=== PATIENT | male | born 1955 | race Caucasian/White ===

== ENCOUNTER 2020-08-09 11:23 | Outpatient (CLI) | payer MEDICARE, SELFPAY ==
--- NOTE | ~2020-08-09 | XR_ITS ---
EXAMINATION: XR abdomen/kub 1V INDICATION: Hematuria unspecified, right-sided pain TECHNIQUE: Supine views of the abdomen were obtained on 2 radiographs. COMPARISON: None FINDINGS: There is a 7 mm calcification projecting just to the right of the sacrum. A round right upp er quadrant calcification appears to project outside the kidney, possibly a gallstone. There is a 5 m m linear calcification projecting over the lower pole of the left kidney. The bowel gas pattern is no rmal. Calcified pulmonary nodules of the visualized lower lobes are consistent with old granulomatous disease. IMPRESSION: 1. 7 mm indeterminate right pelvic calcification, ureteral stone versus vascular calcification. Reviewed, dictated and finalized at location A. ING UP MAN IMPRESSION: 1. 7 mm indeterminate right pelvic calcification, ureteral stone versus vascula r calcification.
== END 2020-08-09 11:24 | disposition home or self-care (01) ==
LOC: ANHIMG 11:29
PROVIDERS: PCP Family Medicine; Visit Provider Family Medicine
DX: R31.9 Hematuria, unspecified (principal)
CPT/HCPCS: 74018

== ENCOUNTER → 2020-08-14 10:36 | Outpatient (CLI) | payer MEDICARE, SELFPAY ==
--- NOTE | ~2020-08-14 | CT_ITS ---
EXAMINATION: CT abdomen pelvis wo con DATE: 08/14/2020 10:52 INDICATION: Hematuria, right flank and lower quadrant pain TECHNIQUE: Computed tomography (CT) of the abdomen and pelvis was performed without intravenous contr ast. The dose-length product (DLP) was 550.81 mGy-cm. Automated exposure control and iterative recons truction technique were employed. COMPARISON: None FINDINGS: Minimal dependent atelectasis is present in the lung bases. The heart size is normal. Cysts of the liver measure up to 11 mm in the right hepatic lobe. Punctate calcifications in an otherwise normal spleen likely represent healed granulomatous disease. The pancreas and right adrenal gland are normal. There is an 11 mm low-density mass of the left adrenal gland, consistent with an adenoma. A stone is present in the nondistended gallbladder. A 7 mm stone is present in the distal right ureter near the ureterovesicular junction. There is mild right hydronephrosis. Punctate stones are present i n the lower pole of the left kidney. There is calcified atherosclerosis of the aorta and many of the other arteries. No pathologically enlarged abdominal or pelvic lymph nodes are identified. There is n o free intraperitoneal gas or evidence of bowel obstruction. There is moderate lumbar spondylosis at L5-S1. A tiny fat-containing umbilical hernia is noted. IMPRESSION: 1. 7 mm stone in the distal right ureter causing mild hydronephrosis. 2. Nonobstructing left nephrolithiasis. 3. Cholelithiasis without evidence of cholecystitis. Reviewed, dictated and finalized at location A. RMATION TECHNOLOGY ASSOCIATE
== END ==
PROVIDERS: PCP Family Medicine; Visit Provider Family Medicine
DX: R31.9 Hematuria, unspecified (principal); N20.0 Calculus of kidney; K80.20 Calculus of gallbladder without cholecystitis without obstruction
CPT/HCPCS: 74176

== ENCOUNTER 2020-08-15 14:15 | Outpatient (CLI) | payer MEDICARE, SELFPAY | END 2020-08-15 14:16 | disposition home or self-care (01) | LOC: ANHCOVIDVC 14:15 | PROVIDERS: PCP Family Medicine | DX: Z23 Encounter for immunization (principal) | CPT/HCPCS: 0001A; 91300 ==

== ENCOUNTER 2020-08-19 12:04 | Outpatient (CLI) | payer MEDICARE, SELFPAY ==
--- NOTE | ~2020-08-19 | XR_ITS ---
XR abdomen/kub 1V DATE: 08/19/2020 12:23 INDICATION: Right ureteral stone TECHNIQUE: AP projection, 2 views COMPARISON: 08/14/[address] abdomen pelvis 08/09/2020 KUB FINDINGS: Probable faint calcified right ureteral calculus appears to have progressed approximately 3 cm further distally in the right ureter compared to 08/09/2020. The psoas shadows are intact. No visceromegaly is evident. There is no evidence of bowel obstruction. Included skeletal structures are unremarkable. IMPRESSION: Faintly calcified 7 mm distal right ureteral calculus Reviewed, dictated and finalized at Location A. Reviewed, dictated and finalized at location A.
== END 2020-08-19 12:05 | disposition home or self-care (01) ==
PROVIDERS: PCP Family Medicine; Visit Provider Urology
DX: N20.1 Calculus of ureter (principal)
CPT/HCPCS: 74018

== ENCOUNTER → 2020-08-25 00:49 | Outpatient (CLI) | payer MEDICARE, SELFPAY ==
[2020-08-25 20:24] LABS: SARS-CoV-2 RNA PCR Negative
== END ==
PROVIDERS: PCP Family Medicine; Visit Provider Urology
DX: Z01.812 Encounter for preprocedural laboratory examination (principal); Z20.822 Contact with and (suspected) exposure to COVID-19
CPT/HCPCS: C9803; U0003; U0005

== ENCOUNTER 2020-08-25 09:50 | Outpatient (CLI) | payer MEDICARE, SELFPAY ==
--- NOTE | 2020-08-25 10:00 | ECG_ITS ---
Measurements Intervals [place] Rate: 62 P: 53 MS: 145 QRS: -34 QRSD: 118 T: 14 QT: 393 QTc: 400 Interpretive Statements SINUS RHYTHM WITH SINUS ARRHYTHMIA LEFT AXIS DEVIATION INCOMPLETE RIGHT BUNDLE BRANCH BLOCK DELAYED PRECORDIAL R/S TRANSITION BASELINE ARTIFACT- I, III, AVR, AVL BORDERLINE ECG Electronically Signed On 08-25-2020 12:16:57 CDT by Audi Zavala D.O.
[2020-08-25 10:36] LABS: Hematocrit 43.3 % (42.0-52.0); Hemoglobin 13.2 g/dL (14.0-18.0)
[2020-08-25 10:40] LABS: Anion Gap 8 mmol/L (8-16); Blood Urea Nitrogen 20 mg/dL (9-20); Calcium 9.4 mg/dL (8.4-10.2); Carbon Dioxide 31 mmol/L (22-30); Chloride 101 mmol/L (98-107); Estimated Glomerular Filt Rate > 60; Glucose 161 mg/dL (75-110); Potassium 4.1 mmol/L (3.4-5.0); Sodium 140 mmol/L (137-145)
== END 2020-08-25 09:51 | disposition home or self-care (01) ==
LOC: ANHSURGERY 09:52
PROVIDERS: Anesthesiology; PCP Family Medicine; Visit Provider Urology
DX: D56.3 Thalassemia minor (principal); E11.9 Type 2 diabetes mellitus without complications; I10 Essential (primary) hypertension; Z01.818 Encounter for other preprocedural examination
CPT/HCPCS: 36415; 80048; 85014; 85018; 93005

== ENCOUNTER 2020-08-28 01:21 | Day surgery (SDC) | payer MEDICARE, SELFPAY ==
[2020-08-22 10:34] VITALS: BMI 24.3
[2020-08-28] VITALS (7 sets, daily range): BP systolic 136–147; BP diastolic 77–87; PULSE 59–83; RESP 10–20; TEMP 36.3–36.5; O2SAT 99–100
--- NOTE | ~2020-08-28 | XR_ITS ---
EXAMINATION: XR retrograde pyelo w/stent RT DATE: 08/28/2020 12:35 INDICATION: Right internal ureteral stent placement TECHNIQUE: Fluoroscopic images from a right internal ureteral stent placement are submitted for alyson foster 60 seconds of fluoroscopy time. 49 fluoroscopic images. FINDINGS: There is a right double-J internal ureteral stent projecting in expected position, with proximal [place] loop at the level of the renal pelvis and distal loop in the pelvis within the bladder lumen. IMPRESSION: 1. Right internal ureteral stent placement. Please refer to real-time procedural findings for maria c oscar. Reviewed, dictated and finalized at location A. IMPRESSION: 1. Right internal ureteral stent placement. Please refer to real-time procedu ral findings for details.
--- NOTE | 2020-08-28 10:19 | WPDHPUPDATE1 ---
History and Physical Update Update Date/Time: 08/28/20 10:19 History and Physical has been reviewed, including an updated exam of the patient. There are NO changes in the patient's condition. Risks, benefits, and alternatives have been discussed and questions answered. Patient agrees to proceed with procedure.
--- NOTE | 2020-08-28 10:57 | WPDHPUPDATE1 ---
History and Physical Update Update Date/Time: 08/28/20 10:57 History and Physical has been reviewed, including an updated exam of the patient. There are NO changes in the patient's condition. Risks, benefits, and alternatives have been discussed and questions answered. Patient agrees to proceed with procedure.
[2020-08-28] MEDS: LACTATED RINGERS 1,000 ML 30 ML IV CONT (11:20)
--- NOTE | 2020-08-28 11:24 | WPDANESEPPF ---
Anes - Initial Pre Proc Eval Procedure: Operation Date: 08/28/20 13:00 Proposed Procedures p Cystoscopy, Right Ureteroscopy, Possible Stone Extraction, Possible Stent Placement - Héctor Mckoy MD s Possible Holmium Laser Procedure - Héctor Mckoy MD Date/Time: 08/28/20 11:24 Surgeon: Héctor Mckoy MD Pre Op Diagnosis: Right Ureteral Stone Patient Data Age: 65 Gender: M Height: 5 ft 10 in Weight: 77.3 kg Allergies Allergy/AdvReac Type Severity Reaction Status Date / Time lisinopril Allergy Severe Swelling Verified 08/28/20 11:10 of Lip/Tongue/Throat RAMON Inhibitors Allergy Unknown Angioedema Verified 08/28/20 11:10 Home Medications Medication Instructions Recorded Confirmed Type lancets #100 each 06/29/19 08/28/20 Rx vardenafil 20 mg tablet 20 mg PO DAILY PRN #14 tablet 06/29/19 08/28/20 Rx hydrocodone 5 mg-acetaminophen 325 1 tablet PO Q8H PRN #70 tablet 08/05/20 08/28/20 Rx mg tablet blood sugar diagnostic #100 each 08/21/20 08/28/20 Rx celecoxib 200 mg PO DAILY 08/22/20 08/28/20 History donepezil 5 mg PO DAILY 08/22/20 08/28/20 History losartan 12.5 mg PO QAM 08/22/20 08/28/20 History metformin 500 mg PO TID 08/22/20 08/28/20 History simvastatin 10 mg PO HS 08/22/20 08/28/20 History Patient hx anesthesia problems: none Family hx anesthesia problems: none PMFSH Past Medical History Medical History Anxiety Cervical vertebral fusion Chronic low back pain Chronic neck pain Dementia Diabetes mellitus Hypertension Migraine Vocal cord nodule Surgical History Surgical History History of elbow surgery History of left knee surgery Family History Family History Father Family history of migraine headaches Hypertension Family history of lung cancer Family history of coronary artery disease Mother Family history of rheumatic fever Social History Social History (Reviewed 08/05/20 @ 12:20 by Hailey Sahni [facility] Smoking packs per day: 1 Smoking cigarettes per day: 20.0 Years smoked: 10 Smoking pack-years: 10.00 Smoking status: Former smoker Second hand tobacco smoke exposure: No Smoking end date: 12/04/00 Alcohol intake: current Substance use: never Living arrangements: with family Additional living arrangements comments: Spiritual care concerns: No Anes - Eval Final PreProcedure Day of Procedure 08/28/20 11:24 Patient weight: normal Heart: regular rate and rhythm Lungs: clear to auscultation Airway: Mallampati scale class III (had uvela swelling in the past with previous neck surgery) Neurological: alert and oriented Last oral intake: >/= 8 hours ASA classification: III Emergent: no Anesthetic plan: proceed Anesthesia type and monitoring: general LMA and standard monitoring Informed Consent: The patient's anesthetic plan and its attendant risks and benefits were discussed with the patient/family/POA. Questions were solicited and answers provided to the satisfaction of the patient/family/POA.
[2020-08-28 11:26] LABS: Glucose Point of Care 148 (65-105)
[2020-08-28] MEDS: ceFAZolin 2 GM/D5W 50 ML 2 GM/50 ML BAG IVPB (11:56)
[2020-08-28] MEDS: LIDOCAINE HCL 2% GEL UROJET 10 ML PKG MUCOUS MEM (12:06)
--- NOTE | 2020-08-28 12:39 | P.OP_ITS ---
Procedure Note - Detailed Date of procedure: 08/28/20 Pre-op diagnosis: Right Ureteral Stone Post-op diagnosis: same Procedure performed: Cystoscopy, right ureteroscopy with laser lithotripsy stone extraction, right retrograde pyelogram and stent placement Description of procedure: The patient was brought to the operative suite where he is prepped and draped in a routine sterile fashion while in the dorsal lithotomy position after the uneventful induction of a general LMA anesthetic. A 19F rigid cystoscope was placed in the bladder. There are no urethral strictures. His prostatic urethra measures, approximately, 2.0cm with small med benjy lobe enlargement. The bladder mucosa was endoscopically normal without hyperemia or neoplasm. There was a single, orthotopic ureteral orifice bilaterally. A 0.035 glidewire was advanced into the right renal pelvis under fluoroscopy. The distal ureter was dilated with an 8F/10F ureteral dilator. Ureteroscopy was undertaken with a short tapered semi-rigid ureteroscope. During ureteroscopy I fractured the stone into smaller pieces using a 273 micron Holmium laser fiber with the Holmium laser. I was able to then extract the stone pieces using a 1.9F Escape, disposable stone basket. Due to the extent of this manipulation I did place a 4.8F double-J ureteral stent. The proximal coil of the stent was confirmed to be in the renal pelvis and the distal coil in the bladder. The patient's bladder was emptied and he was taken to the recovery room having tolerated this procedure well. Anesthesia: GLMA Surgeon: Héctor Mckoy MD Drains: Yes (4.8F right ureteral stent) Packing: No Pathology: yes Complications: No immediate complications Condition: stable Disposition: PACU
[2020-08-28 13:07] LABS: Glucose Point of Care 139 (65-105)
== END 2020-08-28 14:27 | disposition home or self-care (01) ==
PROVIDERS: PCP Family Medicine; Visit Provider Urology
PROC: (CPT 52352; principal; 2020-08-28 13:00)
PROC: (CPT 52356; 2020-08-28 13:00)
DX: N20.1 Calculus of ureter (principal); I10 Essential (primary) hypertension; E11.9 Type 2 diabetes mellitus without complications; F03.90 Unspecified dementia, unspecified severity, without behavioral disturbance, psychotic disturbance, mood disturbance, and anxiety; F41.9 Anxiety disorder, unspecified; M54.2 Cervicalgia; M54.9 Dorsalgia, unspecified; G89.29 Other chronic pain; Z79.891 Long term (current) use of opiate analgesic; Z79.84 Long term (current) use of oral hypoglycemic drugs; Z98.1 Arthrodesis status; Z87.891 Personal history of nicotine dependence
CPT/HCPCS: 52356; 36415; 74420; 80048; 82365; 82948; 85014; 85018; 88300; 93005; A9270; C1769; C2617; C9803; J0690; J1100; J2405; J2704; J3010; J7120; Q9966; U0003; U0005

== ENCOUNTER 2020-09-05 14:17 | Outpatient (CLI) | payer MEDICARE, SELFPAY | END 2020-09-05 14:18 | disposition home or self-care (01) | LOC: ANHCOVIDVC 14:18 | PROVIDERS: PCP Family Medicine | DX: Z23 Encounter for immunization (principal) | CPT/HCPCS: 0002A; 91300 ==

== ENCOUNTER 2020-11-11 14:46 | Outpatient (CLI) | payer MEDICARE, SELFPAY ==
--- NOTE | ~2020-11-11 | XR_ITS ---
XR abdomen/kub 1V 11/11/2020 15:07 INDICATION: Left flank pain. Hematuria. TECHNIQUE: KUB COMPARISON: KUB dated 08/19/2020 FINDINGS: Bowel gas pattern is normal. There is no evidence of free air, mass, organomegaly, ascites or obstruction. There is a punctate lower pole stone in the left kidney.. The bones appear intact. IMPRESSION: 1: Left nephrolithiasis. Reviewed, dictated and finalized at location B. IMPRESSION: 1: Left nephrolithiasis.
== END 2020-11-11 14:47 | disposition home or self-care (01) ==
LOC: ANHIMG 14:50
PROVIDERS: PCP Family Medicine; Visit Provider Urology
DX: N20.0 Calculus of kidney (principal)
CPT/HCPCS: 74018

== ENCOUNTER 2020-12-02 23:08 | Emergency (ER) | payer MEDICARE, SELFPAY ==
--- NOTE | ~2020-12-02 | CT_ITS ---
EXAMINATION: CT abdomen pelvis wo con EXAM DATE: 12/02/2020 23:58 INDICATION: Left flank pain, history of kidney stones. TECHNIQUE: Spiral CT of the abdomen and pelvis was performed without contrast. Axial, coronal and sag ittal images were reviewed. The dose-length product (DLP) for this examination was 370.65 mGy-cm. T he exposure was tailored according to patient size (auto mA exposure control), and iterative reconstr uction (ASIR) was used as additional dose reduction technique. There is no prior study for compariso n. FINDINGS: There is a 3.5 mm stone in the left ureter 1 cm from the ureterovesicular junction, causing mild obstructive nephropathy. No other genitourinary calcifications. Mild prostatomegaly. Small arvind ateral inguinal fat-containing hernias. The bladder is unremarkable. There is a left adrenal adenom a measuring 1.4 cm. Spleen and pancreas are unremarkable. Several small liver cysts. There is a gall stone within otherwise unremarkable appearing gallbladder. There is no retroperitoneal or pelvic lym phadenopathy. There is mild to moderate scattered arteriosclerotic disease. The appendix is normal. The stomach and small bowel are unremarkable. There is expected amount of c olonic stool. No free intraperitoneal gas. The heart is normal in size. There are no pericardial or pleural effusions. Several left basilar granulomata. There are no osteoblastic or osteolytic le sions identified. IMPRESSION: 1. Left distal ureteral 3.5 mm stone, mild obstructive nephropathy. 2. Left adrenal adenoma. 3. Small inguinal hernias. 4. Mild prostatomegaly. 5. Cholelithiasis. Reviewed, dictated and finalized at location A.
[2020-12-02 23:22] VITALS: BP 156/74; PULSE 77; RESP 19; TEMP 36.3; O2SAT 100
--- NOTE | 2020-12-02 23:46 | ED.ABDPAIN ---
HPI - Abdominal Pain General Chief Complaint: Abdominal Pain Stated Complaint: Kidney stone Time Seen by Provider: 12/02/20 23:43 Source: patient Mode of arrival: ambulatory Limitations: no limitations History of Present Illness HPI narrative: Patient is a 65-year-old male complaining of left flank pain, 8 out of 10, sharp, radiating to left groin accompanied by nausea that started today. Patient states that 2 days ago he noticed blood in his urine. Patient claims that he has a history of kidney stones. Patient denies any chest pain, shortness of breath, vomiting, diarrhea, fever or chills. Related Data Home Medications Medication Instructions Recorded Confirmed donepezil 5 mg PO DAILY 08/22/20 11/05/20 losartan 12.5 mg PO QAM 08/22/20 11/05/20 metformin 500 mg PO TID 08/22/20 11/05/20 simvastatin 10 mg PO HS 08/22/20 11/05/20 Allergies Allergy/AdvReac Type Severity Reaction Status Date / Time lisinopril Allergy Severe Swelling Verified 12/02/20 23:30 of Lip/Tongue/Throat RAMON Inhibitors Allergy Unknown Angioedema Verified 12/02/20 23:30 Review of Systems Review of Systems: All systems reviewed & are unremarkable except as noted in HPI and below Constitutional: Constitutional: Denies body ache(s), Denies chills, Denies excessive sweating, Denies fatigue, Denies fever(s), Denies headache(s), Denies lethargy, Denies malaise, Denies weakness and Denies weight loss Eyes: Eyes: Denies blurry vision, Denies change in vision and Denies loss of vision ENT: Denies dizziness, Denies ear discharge, Denies headache(s), Denies lip swelling, Denies epistaxis, Denies nasal congestion, Denies neck pain, Denies throat swelling and Denies tongue swelling Cardiovascular: Cardiovascular: Denies chest pain, Denies chest pain at rest, Denies chest pain with activity, Denies diaphoresis, Denies rapid heart rate, Denies edema, Denies irregular heart rhythm, Denies lightheadedness, Denies palpitations, Denies dyspnea and Denies dyspnea on exertion Respiratory: Respiratory: Denies chest congestion, Denies cough, Denies hemoptysis, Denies dyspnea and Denies dyspnea on exertion Gastrointestinal: Gastrointestinal: Denies abdominal pain, Denies melena, Denies hematochezia, Denies diarrhea, Denies vomiting and Denies hematemesis Musculoskeletal: Musculoskeletal: Denies abnormal gait, Denies deformity, Denies joint swelling, Denies limited range of motion, Denies neck pain and Denies numbness Neurologic: Denies Abnormal speech present, Denies abnormal gait, Denies confusion, Denies dizziness, Denies headache(s), Denies focal weakness, Denies loss of vision, Denies numbness, Denies Other visual disturbances, Denies Sensory deficit (Neuro) and Denies weakness Psychiatric: Psychiatric: Denies confusion, Denies depression, Denies auditory hallucinations, Denies homicidal ideation and Denies suicidal ideation Endocrine: Endocrine: Denies cold intolerance, Denies excessive sweating, Denies fatigue, Denies heat intolerance and Denies palpitations Hematologic/Lymphatic: Hematologic/Lymphatic: Denies easy bleeding and Denies easy bruising Allergic/Immunologic: Allergic/Immunologic: Denies lip swelling, Denies throat swelling and Denies tongue swelling PMFSH Past Medical History Medical History Anxiety Cervical vertebral fusion Chronic low back pain Chronic neck pain Dementia Diabetes mellitus Hypertension Migraine Mixed hyperlipidemia Vocal cord nodule Surgical History Surgical History History of elbow surgery History of left knee surgery Family History Family History Father Family history of migraine headaches Hypertension Family history of lung cancer Family history of coronary artery disease Mother Family history of rheumatic fever Social History Social History
[2020-12-03] MEDS: SODIUM CHLORIDE 0.9% IV 1,000 ML 999 ML IV CONT (00:21)
[2020-12-03] MEDS: KETOROLAC 30 MG/ML VIAL (*BKC) IV PUSH (00:22)
[2020-12-03] MEDS: PROMETHAZINE HCL 25 MG/ML AMPUL 12.5 MG IV PUSH (00:23)
[2020-12-03 00:39] LABS: Basophils Absolute Auto 0.1 K/mm3 (0.0-0.1); Basophils Percent Auto 0.4 % (0.2-1.2); Eosinophils Percent Auto 0.3 % (0-4.4); Hematocrit 37.4 % (42.0-52.0); Hemoglobin 11.3 g/dL (14.0-18.0); Immature Granulocyte Absolute 0.05 K/mm3 (0.00-0.031); Immature Granulocyte Percent A 0.4 % (0-0.5); Immature Platelet Fraction Pct 7.9 % (0.9-11.2); Lymphocytes Absolute Auto 0.79 K/mm3 (0.9-3.2); Lymphocytes Percent Auto 6.6 % (18.3-44.2); Mean Corpuscular HGB Conc 30.2 g/dl (32-36); Mean Corpuscular Hemoglobin 19.7 pg (26-34); Mean Corpuscular Volume 65.3 fl (80-100); Mean Platelet Volume 11.6 fl (7.4-10.4); Monocytes Absolute Auto 0.6 K/mm3 (0.1-0.6); Monocytes Percent Auto 4.7 % (2.6-8.5); Neutrophils Absolute Auto 10.5 K/mm3 (1.3-6.7); Neutrophils Percent Auto 87.6 % (45.5-73.1); Platelet Count Result 196 k/mm3 (150-375); Red Blood Count 5.73 M/mm3 (4.6-6.20); Red Cell Distribution Width 16.2 % (11.5-14.5)
[2020-12-03 00:49] LABS: Alanine Aminotransferase 23 U/L (4-50); Albumin Level 4.5 g/dL (3.5-5.1); Alkaline Phosphatase 50 U/L (38-126); Anion Gap 10 mmol/L (8-16); Aspartate Amino Transferase 26 U/L (17-59); Bilirubin,Total 1.1 mg/dL (0.2-1.3); Blood Urea Nitrogen 25 mg/dL (9-20); Calcium 9.7 mg/dL (8.4-10.2); Carbon Dioxide 26 mmol/L (22-30); Chloride 103 mmol/L (98-107); Estimated Glomerular Filt Rate > 60; Glucose 243 mg/dL (75-110); Lipase 42 U/L (23-300); Potassium 4.3 mmol/L (3.4-5.0); Sodium 139 mmol/L (137-145)
[2020-12-03 00:52] LABS: Add Urine Microscopic? YES; Appearance Urine Cloudy (Clear); Bilirubin Urine Negative (Negative); Blood Urine 3+ (Negative); Color Urine Yellow (Yellow); Glucose Urine UA 2+ mg/dL (Negative); Ketones Urine Trace mg/dL (Negative); Leukocyte Esterase Ur Negative LEU/UL (Negative); Mucus Urine Rare /lpf; Nitrate Urine Negative (Negative); Protein Urine 2+ mg/dL (Negative); RBC Urine >75 /hpf (0-2); Specific Grav Ur 1.023 (1.001-1.035); Urobilinogen Urine Negative mg/dL (<2.0)
[2020-12-03] MEDS: TAMSULOSIN HCL 0.4 MG CAPSULE PO (01:19)
[2020-12-03 02:06] VITALS: BP 108/58; PULSE 84; RESP 14; O2SAT 97
== END 2020-12-03 02:09 | disposition home or self-care (01) ==
PROVIDERS: Emergency Provider Emergency Medicine; PCP Family Medicine
DX: N13.8 Other obstructive and reflux uropathy (principal); N20.1 Calculus of ureter; F03.90 Unspecified dementia, unspecified severity, without behavioral disturbance, psychotic disturbance, mood disturbance, and anxiety; E11.9 Type 2 diabetes mellitus without complications; I10 Essential (primary) hypertension; E78.2 Mixed hyperlipidemia; Z87.891 Personal history of nicotine dependence; K80.20 Calculus of gallbladder without cholecystitis without obstruction; N40.0 Benign prostatic hyperplasia without lower urinary tract symptoms; K40.90 Unilateral inguinal hernia, without obstruction or gangrene, not specified as recurrent; D35.02 Benign neoplasm of left adrenal gland; Z79.84 Long term (current) use of oral hypoglycemic drugs
CPT/HCPCS: 36415; 74176; 80053; 81001; 83690; 85025; 85055; 96361; 96374; 96375; 99284; A9270; J1885; J2550; J7030

== ENCOUNTER → 2021-04-03 13:06 | Outpatient (CLI) | payer MEDICARE, SELFPAY ==
--- NOTE | ~2021-04-03 | XR_ITS ---
XR cervical spine 4-5V 04/03/2021 13:55 Indication: Neck pain and radiculopathy Procedure: 5 views of the cervical spine Comparison: No prior studies for comparison. Findings: There is anterior fusion and discectomy at C5-6. There is degenerative disc disease at C4-5 . There is mild uncinate degenerative change at C4-5. Lung apices are normal. Impression: 1: Mild cervical spondylosis with anterior fusion at C5-6. Reviewed, dictated and finalized at location A. Impression: 1: Mild cervical spondylosis with anterior fusion at C5-6.
--- NOTE | ~2021-04-03 | XR_ITS ---
XR lumbar spine 2-3V 04/03/2021 13:56 Indication: Low back pain and radiculopathy Procedure: 3 views lumbar spine Comparison: No prior studies for comparison. Findings: There is disc narrowing at L4-5 and L5-S1. There is facet hypertrophy at L4-5 and L5-S1. Ve rtebral body heights are maintained. There is atherosclerosis of the aorta. No acute fracture, sublux ation or spondylolisthesis. Sacral foramen are symmetric. Impression: 1: Moderate lumbar spondylosis at L4-5 and L5-S1. Reviewed, dictated and finalized at location A. Impression: 1: Moderate lumbar spondylosis at L4-5 and L5-S1.
--- NOTE | ~2021-04-03 | XR_ITS ---
EXAMINATION: XR knee LT 2V DATE: 04/03/2021 13:56 INDICATION: Left knee pain. TECHNIQUE: 2 views of left knee standing were obtained. COMPARISON: None. FINDINGS: Bone alignment is normal. No fracture. There is mild tricompartmental osteoarthritis. There is a small knee joint effusion. IMPRESSION: 1. Mild left knee osteoarthritis. 2. Small left knee joint effusion. Reviewed, dictated and finalized at location A.
--- NOTE | ~2021-04-03 | XR_ITS ---
EXAMINATION: XR knee RT 2V DATE: 04/03/2021 13:56 INDICATION: Right knee pain. TECHNIQUE: 2 views of right knee standing were obtained. COMPARISON: None. FINDINGS: Bone alignment is normal. No fracture. There is mild tricompartmental osteoarthritis charac terized by tiny marginal osteophytes. No joint space narrowing. No knee joint effusion. IMPRESSION: 1. Mild right knee osteoarthritis. Reviewed, dictated and finalized at location A.
== END ==
PROVIDERS: Visit Provider Pain Medicine Interventional Pain Medicine
DX: M47.22 Other spondylosis with radiculopathy, cervical region (principal); M47.23 Other spondylosis with radiculopathy, cervicothoracic region; M25.569 Pain in unspecified knee; F41.1 Generalized anxiety disorder; F33.1 Major depressive disorder, recurrent, moderate; M47.896 Other spondylosis, lumbar region; Z98.1 Arthrodesis status; M17.0 Bilateral primary osteoarthritis of knee; M25.462 Effusion, left knee
CPT/HCPCS: 72050; 72100; 73560

== ENCOUNTER 2021-04-13 09:29 | Outpatient (CLI) | payer MEDICARE, SELFPAY ==
--- NOTE | ~2021-04-13 | XR_ITS ---
EXAMINATION: XR abdomen/kub 1V INDICATION: Left ureteral stone TECHNIQUE: Supine views of the abdomen were obtained on 2 radiographs. COMPARISON: 11/11/2020 FINDINGS: The previously described left distal ureteral stone is not definitely identified. No urolit hiasis is seen. The bowel gas pattern is normal. There is mild osteoarthritis of the hips. IMPRESSION: 1. No urolithiasis identified. Reviewed, dictated and finalized at location B. DER LOADER
== END 2021-04-13 09:30 | disposition home or self-care (01) ==
LOC: ANHIMG 09:32
PROVIDERS: PCP Family Medicine; Visit Provider Urology
DX: N20.1 Calculus of ureter (principal)
CPT/HCPCS: 74018

== ENCOUNTER → 2021-09-04 12:55 | Outpatient (CLI) | payer MEDICARE, SELFPAY ==
--- NOTE | ~2021-09-04 | XR_ITS ---
XR shoulder LT min 2V DATE: 09/04/2021 13:43 INDICATION: Left shoulder pain TECHNIQUE: 4 views COMPARISON: None FINDINGS: No fracture or dislocation, periosteal reaction or bone destruction or abnormal soft tissue calcification. IMPRESSION: Negative Reviewed, dictated and finalized at location A. IMPRESSION: Negative
--- NOTE | ~2021-09-04 | XR_ITS ---
EXAMINATION: XR shoulder RT min 2V DATE: 09/04/2021 13:43 INDICATION: Bilateral shoulder pain. TECHNIQUE: 4 views of right shoulder were obtained. COMPARISON: None. FINDINGS: Bone alignment is normal. No fracture. There is mild osteoarthritis of glenohumeral joint a nd acromioclavicular joint. Calcified right lung nodules are consistent with old granulomatous diseas e. IMPRESSION: 1. Mild polyarticular osteoarthritis. Reviewed, dictated and finalized at location A.
== END ==
PROVIDERS: PCP Family Medicine; Visit Provider Pain Medicine Interventional Pain Medicine
DX: M19.011 Primary osteoarthritis, right shoulder (principal)
CPT/HCPCS: 73030

== ENCOUNTER → 2022-05-05 12:08 | Outpatient (CLI) | payer MEDICARE, SELFPAY ==
--- NOTE | ~2022-05-05 | XR_ITS ---
XR knee LT 2V 05/05/2022 12:44 Indication: Left knee pain Procedure: 2 views left knee Comparison: No prior studies for comparison. Findings: There is mild osteoarthritis of the left knee with joint space narrowing most significant i n the medial compartment. No fracture, subluxation or dislocation. Small joint effusion. Impression: 1: Mild osteoarthritis of the left knee. 2: Small joint effusion. Reviewed, dictated and finalized at location A. ICAL DATA RESEARCH Impression: 1: Mild osteoarthritis of the left knee. 2: Small joint effusion.
--- NOTE | ~2022-05-05 | XR_ITS ---
XR knee RT 2V 05/05/2022 12:44 Indication: Right knee pain Procedure: 2 views right knee Comparison: 04/03/2021 Findings: There is mild patellofemoral compartment osteoarthritis. No fracture, subluxation or disloc ation. No significant joint effusion. Impression: 1: Mild patellofemoral compartment osteoarthritis. Reviewed, dictated and finalized at location A. BANDER Impression: 1: Mild patellofemoral compartment osteoarthritis.
--- NOTE | ~2022-05-05 | XR_ITS ---
XR lumbar spine 2-3V DATE: 05/05/2022 12:45 INDICATION: Lumbar radiculopathy TECHNIQUE: Standing AP, lateral and coned lateral lumbosacral views COMPARISON: 04/03/2021 lumbar spine FINDINGS: Normal alignment of the lumbar spine. No fracture or bone destruction or spondylolisthesis. There is mild degenerative disease at L4-5 and moderately severe degenerative disease at L5-S1. Included lower thoracic and lumbar pedicles are intact. The sacroiliac joints are normal. Considerably calcified gallstone is noted. IMPRESSION: Mild degenerative disc disease at L4-5 and mildly severe degenerative disease at L5-S1 Cholelithiasis Reviewed, dictated and finalized at location A. LE PACKING MACHINE CLEANER IMPRESSION: Mild degenerative disc disease at L4-5 and mildly severe degenerati ve disease at L5-S1 Cholelithiasis
--- NOTE | ~2022-05-05 | XR_ITS ---
XR cervical spine 4-5V DATE: 05/05/2022 12:45 INDICATION: Cervical radiculopathy TECHNIQUE: AP, open-mouth, odontoid, lateral and swimmer views COMPARISON: 04/03/2021 cervical spine FINDINGS: Cervical curvature is intact on lateral view. There is mild levoscoliosis of the cervical a nd upper thoracic spine. Status post anterior and interbody spinal fusion at C5-6. There is severe degenerative disc disease with approximately 2.8 mm retrolisthesis at C4-5. Mild degenerative disc disease at C6-7. Cervical interspaces are well preserved at C2-3, C3-4 and C6- 7. C1 and C2 are normally aligned and the odontoid process is intact. No fracture or dislocation or lock ed facet or prevertebral soft tissue swelling is detected. IMPRESSION: Status post anterior and interbody spinal fusion at C5-6 Severe degenerative disc disease and approximately 2.8 mm retrolisthesis at C4-5 Reviewed, dictated and finalized at location A. ERSAL BRANCH CONSULTANT IMPRESSION: Status post anterior and interbody spinal fusion at C5-6 Severe degenerative disc disease and approximately 2.8 mm retrolisthesis at C4- 5
== END ==
PROVIDERS: PCP Family Medicine; Visit Provider Pain Medicine Interventional Pain Medicine
DX: M47.23 Other spondylosis with radiculopathy, cervicothoracic region (principal); M47.22 Other spondylosis with radiculopathy, cervical region; M17.9 Osteoarthritis of knee, unspecified; F33.1 Major depressive disorder, recurrent, moderate; F41.1 Generalized anxiety disorder; Z98.1 Arthrodesis status; M50.30 Other cervical disc degeneration, unspecified cervical region; M51.36 Other intervertebral disc degeneration, lumbar region; K80.20 Calculus of gallbladder without cholecystitis without obstruction; M17.0 Bilateral primary osteoarthritis of knee; M25.462 Effusion, left knee
CPT/HCPCS: 72050; 72100; 73560

== ENCOUNTER → 2023-07-14 10:39 | Outpatient (CLI) | payer MEDICARE, SELFPAY ==
--- NOTE | ~2023-07-14 | XR_ITS ---
Cervical Spine: AP and lateral views Clinical History: Pain Findings: No acute fracture identified. There is anterior fusion from C5 to C6, with fusion across th e disc space. There is 3 mm retrolisthesis of C4 over C5, severe degenerative disc narrowing at C4-C5 . Remaining disc spaces are preserved. Pre-vertebral soft tissues are unremarkable. Impression: Anterior C5-C6 fusion. 3 mm retrolisthesis of C4 over C5, with severe degenerative disc narrowing at this level. Reviewed, dictated and finalized at location M. EL ELASTIC OPERATOR ZIGZAG Impression: Anterior C5-C6 fusion. 3 mm retrolisthesis of C4 over C5, with severe degenerative disc narrowing at t his level.
--- NOTE | ~2023-07-14 | XR_ITS ---
Left Knee Technique: AP and lateral views were obtained. Clinical History: Pain Findings: No fracture or dislocation is seen. Osseous alignment is anatomic. Joint spaces are preserv ed without degenerative or erosive change. Soft tissues are unremarkable. No joint effusion is seen. Impression: Unremarkable left knee radiographs. Reviewed, dictated and finalized at [facility]. DAMAGE TRAINEE Impression: Unremarkable left knee radiographs.
--- NOTE | ~2023-07-14 | XR_ITS ---
Lumbosacral Spine: AP and lateral views Clinical History: Pain Findings: The normal lordotic curve is maintained. The vertebral bodies and posterior elements are i ntact. There is advanced degenerative disc narrowing at L5-S1. The sacroiliac joints are normally ou tlined. Impression: Advanced degenerative disc narrowing at L5-S1. Reviewed, dictated and finalized at [facility]. RWEAR WELTER Impression: Advanced degenerative disc narrowing at L5-S1.
--- NOTE | ~2023-07-14 | XR_ITS ---
Right Knee Technique: AP and lateral views were obtained. Clinical History: Pain Findings: No fracture or dislocation is seen. Osseous alignment is anatomic. Joint spaces are preserv ed without degenerative or erosive change. Soft tissues are unremarkable. No joint effusion is seen. Impression: Unremarkable right knee radiographs. Reviewed, dictated and finalized at [facility]. COMPLIANCE SPECIALIST Impression: Unremarkable right knee radiographs.
== END ==
PROVIDERS: PCP Family Medicine; Visit Provider Pain Medicine Interventional Pain Medicine
DX: M17.9 Osteoarthritis of knee, unspecified (principal); G89.4 Chronic pain syndrome; M54.12 Radiculopathy, cervical region; M54.17 Radiculopathy, lumbosacral region; Z98.1 Arthrodesis status
CPT/HCPCS: 72050; 72100; 73560

== ENCOUNTER 2024-03-27 11:33 | Outpatient (CLI) | payer MEDICARE, SELFPAY ==
--- NOTE | 2024-03-27 12:03 | ECG_ITS ---
Test Date: 2024-03-27 12:12:20 Measurements Intervals [place] Rate: 58 P: 57 ME: 124 QRS: -35 QRSD: 117 T: 40 QT: 395 QTc: 391 Interpretive Statements SINUS BRADYCARDIA WITH SHORT ME INTERVAL LEFT AXIS DEVIATION [QRS AXIS < -30] INCOMPLETE RIGHT BUNDLE BRANCH BLOCK [90+ ms QRS DURATION, TERMINAL R IN V1/V2, 40+ ms S IN I/aVL/V4/V5/V6] ABNORMAL ECG No previous ECG available for comparison Electronically Signed On 03-28-2024 10:11:54 CDT by Dudley Xie M.D.
[2024-03-27 12:16] LABS: Basophils Percent Auto 0.6 % (0.2-1.2); Eosinophils Absolute Auto 0.3 K/mm3 (0-0.3); Eosinophils Percent Auto 4.4 % (0-4.4); Hematocrit 36.1 % (42.0-52.0); Hemoglobin 11.1 g/dL (14.0-18.0); Immature Granulocyte Absolute 0.02 K/mm3 (0.00-0.031); Immature Granulocyte Percent A 0.3 % (0-0.5); Immature Platelet Fraction Pct 7.2 % (0.9-11.2); Lymphocytes Absolute Auto 2.21 K/mm3 (0.9-3.2); Lymphocytes Percent Auto 33.6 % (18.3-44.2); Mean Corpuscular HGB Conc 30.7 g/dl (32-36); Mean Corpuscular Hemoglobin 20.3 pg (26-34); Mean Platelet Volume 11.4 fl (7.4-10.4); Monocytes Absolute Auto 0.5 K/mm3 (0.1-0.6); Monocytes Percent Auto 6.8 % (2.6-8.5); Neutrophils Absolute Auto 3.6 K/mm3 (1.3-6.7); Neutrophils Percent Auto 54.3 % (45.5-73.1); Platelet Count Result 182 k/mm3 (150-375); Red Blood Count 5.47 M/mm3 (4.6-6.20); Red Cell Distribution Width 15.6 % (11.5-14.5); White Blood Count 6.6 K/mm3 (4.5-10.0)
[2024-03-27 12:44] LABS: Anion Gap 9 mmol/L (4-12); Blood Urea Nitrogen 18 mg/dL (9-20); Calcium 9.4 mg/dL (8.4-10.2); Carbon Dioxide 29 mmol/L (22-30); Chloride 101 mmol/L (98-107); Estimated Glomerular Filt Rate > 60; Glucose 208 mg/dL (65-110); Sodium 139 mmol/L (137-145)
[2024-03-27 12:45] LABS: Add Urine Microscopic? YES; Appearance Urine Clear (Clear); Bacteria Urine None Seen /hpf; Bilirubin Urine 1+ (Negative); Blood Urine Negative (Negative); Color Urine Dark Yellow (Yellow); Glucose Urine UA 3+ mg/dL (Negative); Ketones Urine Trace mg/dL (Negative); Leukocyte Esterase Ur Negative LEU/UL (Negative); Nitrate Urine Negative (Negative); Non Pathogenic Casts 0-2; Protein Urine Trace mg/dL (Negative); RBC Urine 0-2 /hpf (0-2); Specific Grav Ur 1.039 (1.001-1.035); Squamous Epithelial Cell Urine None Seen /hpf (Few); WBC Urine 0-5 /hpf (0-3)
[2024-03-27 13:31] LABS: Hypochromasia 1+; Platelet Estimate Adequate (Adequate); Schistocytes None Seen
[2024-03-27 16:28] LABS: Hemoglobin A1C 7.2 % (<5.7)
== END 2024-03-27 11:34 | disposition home or self-care (01) ==
LOC: ANHLAB 11:38
PROVIDERS: PCP Family Medicine; Visit Provider Nurse Practitioner Family
DX: D56.9 Thalassemia, unspecified (principal); E78.2 Mixed hyperlipidemia; I10 Essential (primary) hypertension; N20.0 Calculus of kidney; R31.9 Hematuria, unspecified; R53.83 Other fatigue; E11.9 Type 2 diabetes mellitus without complications; I45.10 Unspecified right bundle-branch block
CPT/HCPCS: 36415; 80048; 81001; 83036; 85025; 85055; 93005

== ENCOUNTER 2024-05-18 10:46 | Outpatient (CLI) | payer MEDICARE, SELFPAY | END 2024-05-18 10:47 | disposition home or self-care (01) | LOC: ANHAUDIO 10:47 | PROVIDERS: Visit Provider Otolaryngology | DX: H90.3 Sensorineural hearing loss, bilateral (principal); H93.2 Other abnormal auditory perceptions | CPT/HCPCS: 92557; 92567 ==

== ENCOUNTER 2024-06-13 13:46 | Outpatient (CLI) | payer MEDICARE, SELFPAY ==
[2024-06-13 15:39] LABS: Basophils Absolute Auto 0.1 K/mm3 (0.0-0.1); Basophils Percent Auto 0.6 % (0.2-1.2); Eosinophils Absolute Auto 0.2 K/mm3 (0-0.3); Eosinophils Percent Auto 2.7 % (0-4.4); Hematocrit 36.1 % (42.0-52.0); Hemoglobin 11.2 g/dL (14.0-18.0); Immature Granulocyte Absolute 0.02 K/mm3 (0.00-0.031); Immature Granulocyte Percent A 0.3 % (0-0.5); Immature Platelet Fraction Pct 6.9 % (0.9-11.2); Lymphocytes Absolute Auto 2.15 K/mm3 (0.9-3.2); Lymphocytes Percent Auto 27.8 % (18.3-44.2); Mean Corpuscular Hemoglobin 20.5 pg (26-34); Mean Platelet Volume 11.8 fl (7.4-10.4); Monocytes Absolute Auto 0.6 K/mm3 (0.1-0.6); Neutrophils Absolute Auto 4.7 K/mm3 (1.3-6.7); Neutrophils Percent Auto 60.6 % (45.5-73.1); Nucleated Red Blood Cells Perc 0.3 % (0.0-0.2); Platelet Count Result 213 k/mm3 (150-375); Red Blood Count 5.47 M/mm3 (4.6-6.20); Red Cell Distribution Width 16.5 % (11.5-14.5); White Blood Count 7.7 K/mm3 (4.5-10.0)
[2024-06-13 15:52] LABS: INR 1.1; Partial Thromboplastin Time 28.1 Seconds (22.3-36.8); Prothrombin Time 14.1 Seconds (11.1-14.7)
[2024-06-13 15:54] LABS: Add Urine Microscopic? YES; Appearance Urine Clear (Clear); Bacteria Urine None Seen /hpf; Bilirubin Urine 1+ (Negative); Blood Urine Negative (Negative); Calcium Oxalate Crystals Urine Present /hpf; Color Urine Dark Yellow (Yellow); Glucose Urine UA Negative (Negative); Ketones Urine 1+ mg/dL (Negative); Leukocyte Esterase Ur Negative LEU/UL (Negative); Nitrate Urine Negative (Negative); Non Pathogenic Casts 0-2; Protein Urine 1+ mg/dL (Negative); RBC Urine 0-2 /hpf (0-2); Squamous Epithelial Cell Urine None Seen /hpf (Few); WBC Urine 0-5 /hpf (0-3)
[2024-06-13 15:56] LABS: Albumin Level 4.5 g/dL (3.5-5.1); Anion Gap 8 mmol/L (4-12); Blood Urea Nitrogen 17 mg/dL (9-20); Calcium 9.3 mg/dL (8.4-10.2); Carbon Dioxide 29 mmol/L (22-30); Chloride 102 mmol/L (98-107); Estimated Glomerular Filt Rate > 60; Glucose 121 mg/dL (65-110); Potassium 4.3 mmol/L (3.4-5.0); Sodium 139 mmol/L (137-145)
[2024-06-13 16:00] LABS: Urine Cotinine NEGATIVE
[2024-06-13 16:01] LABS: Platelet Estimate Decreased (Adequate)
[2024-06-13 16:02] LABS: Microcytosis 1+ (NORMAL); Schistocytes Rare
[2024-06-13 16:03] LABS: Anisocytosis 2+; Hypochromasia 1+
[2024-06-13 16:47] LABS: MRSA (PCR) NOT DETECTED (NOT DETECTE)
== END 2024-06-13 13:47 | disposition home or self-care (01) ==
LOC: ANHSURGERY 13:51
PROVIDERS: PCP Family Medicine; Visit Provider Orthopaedic Surgery
DX: Z01.818 Encounter for other preprocedural examination (principal); M17.12 Unilateral primary osteoarthritis, left knee
CPT/HCPCS: 80048; 80307; 81001; 82040; 85025; 85055; 85610; 85730; 87641

== ENCOUNTER 2024-06-27 01:22 | Day surgery (SDC) | payer MEDICARE, SELFPAY ==
--- NOTE | 2024-06-13 13:52 | PC.NURSE ---
Report to the Outpatient Waiting Room, entrance under the green pavilion located off [facility], at time __6 am on date _06/27/24 . Planned Procedure Time: _7:30 am .? Time changes happen often and if your time is changed the preop area will call you the afternoon before. - You and your visitor will be asked to self-screen and do not enter if you have any COVID symptoms. Please call surgeon if you need to reschedule. - A mask is optional within the hospital at this time. Patients may have clear liquids (water, carbonated beverages, clear teas, apple juice) until 3 hours prior to surgery( 4:30 am) with a maximum of 20 ounces. - No food from midnight until time of surgery and no smoking. This includes no chewing gum, candy or mints. Take only the following medications with a SIP of water on the morning of surgery: ___HYDROCODONE IF NEEDED FOR PAIN, DO NOT STOP ANY OF YOUR OTHER PRESCRIPTION MEDICATIONS PRIOR TO SURGERY EXCEPT THE FOLLOWING Medications to discontinue per physician __CELECOXIB PER DR ESCAMILLA HOLD ALL VITAMINS AND SUPPLEMENTS 3 DAYS PRE OP Date to take last dose 06/23/24 Please no make-up, nail italian, hairspray, perfume, deodorant, or body powder the day of surgery.? No jewelry (including any body piercings) or valuables the day of surgery, leave them at home.? Please take a shower or bath the night before, or the morning of, surgery with an antibacterial soap.? Wear comfortable, loose fitting clothing.? Children are encouraged to wear pajamas. - Jewelry must be removed prior to entering the operating room.? Rings and piercings that are not removed may be cut off. - The hospital will not accept responsibility for valuables.? - Please leave all valuables, including medications, at home the day of surgery. If you are going home after surgery, a licensed carrier driver must drive you home.? - NO public transportation without another adult if you receive anesthesia. - We recommend that an adult stay with you for 24 hours following discharge. - We also recommend that you do not drive, make important decision, drink alcoholic beverages, or take any drugs that were not prescribed by your health care provider for at least 24 hours after your discharge time. Follow any additional instructions given to you from your surgeon. VERBAL AND WRITTEN instructions given to ___PATIENT and asked if any additional questions and then verbalized understanding. Patient advised to call surgeon office or pre surgery nurse liaison [phone] if any additional questions.
[2024-06-13 13:56] VITALS: BMI 24.3
[2024-06-13 14:48] VITALS: BP 123/64; PULSE 74; RESP 18; TEMP 36.8; O2SAT 98
--- NOTE | 2024-06-26 15:32 | P.PNAN_ITS ---
Anes - Initial Pre Proc Eval Procedure: Operation Date: 06/27/24 07:30 Proposed Procedures p Left Total Knee Arthroplasty - Bi Manning MD Date/Time: 06/26/24 15:32 Surgeon: Bi Manning MD Pre Op Diagnosis: Lt Knee O.A. Patient Data Age: 69 Gender: M Height: 1.79 m Weight: 77.8 kg Last Vital Signs Temp 36.8 C 06/13/24 14:48 Pulse 74 06/13/24 14:48 Resp 18 06/13/24 14:48 BP 123/64 06/13/24 14:48 Pulse Ox 98 06/13/24 14:48 O2 Del Method Room Air 06/13/24 14:48 Allergies Allergy/AdvReac Type Severity Reaction Status Date / Time lisinopril Allergy Severe Swelling Verified 06/27/24 06:38 of Lip/Tongue/Throat bupropion (From Zyban) Allergy Mild Hives Verified 06/27/24 06:39 RAMON Inhibitors Allergy Unknown Angioedema Verified 06/27/24 06:38 Nickel Allergy Unknown Itching Uncoded 06/27/24 06:38 Home Medications ?Medication ?Instructions ?Recorded ?Confirmed ?Type lancets #100 ea 10/06/20 06/18/24 Rx hydrocodone 5 mg-acetaminophen 325 1 tablet PO Q8H PRN pain #12 tabs 12/03/20 06/27/24 Rx mg tablet tadalafil 20 mg tablet (Cialis) 20 mg PO .COMPLEX #10 tabs 01/09/21 06/18/24 Rx fluticasone propionate 50 1 spray intranasal DAILY #16 grams 09/05/23 06/27/24 Rx mcg/actuation nasal spray,suspension (Allergy Relief (fluticasone)) tamsulosin 0.4 mg capsule (Flomax) 0.4 mg PO DAILY #90 caps 01/13/24 06/27/24 Rx blood sugar diagnostic (OneTouch #100 ea 02/07/24 06/18/24 Rx Verio test strips) celecoxib 200 mg capsule See Rx Instructions .Route 02/09/24 06/27/24 Rx .COMPLEX #30 caps simvastatin 10 mg tablet 10 mg PO HS #90 tabs 02/24/24 06/27/24 Rx metformin 500 mg tablet 500 mg PO TID #270 tabs 03/09/24 06/27/24 Rx losartan 25 mg tablet See Rx Instructions .Route 04/02/24 06/27/24 Rx .COMPLEX #45 tabs donepezil 5 mg tablet 5 mg PO DAILY #90 tabs 04/26/24 06/27/24 Rx lancets 30 gauge (Ultra Thin #100 ea 05/16/24 06/18/24 Rx Lancets) glimepiride 1 mg tablet 1 mg PO QAM #90 tabs 06/04/24 06/27/24 Rx famotidine 40 mg tablet 40 mg PO HS 06/13/24 06/27/24 History sgajvssg-py-zrhyo 300 mcg-K 60 1 tablet PO DAILY 06/13/24 06/27/24 History mcg-lycop 600 mcg-lutein 300 mcg tablet (Centrum Silver Men) omega 3-pre-bxk-fish oil 1,000 mg 1 cap PO DAILY 06/13/24 06/27/24 History (120 mg-180 mg) capsule (Fish Oil) chlorhexidine gluconate 4 % 1 applic topical ONCE #237 mL 06/20/24 Rx topical liquid (Hibiclens) Patient hx anesthesia problems: none Family hx anesthesia problems: none Results Review: All pre-operative results and documents have been reviewed as part of the pre- operative evaluation. [facility] Past Medical History Medical History Anemia Urinary frequency Hearing loss Left knee DJD Right knee DJD Left shoulder pain Mixed hyperlipidemia Dementia Anxiety Chronic neck pain Chronic low back pain Hypertension Diabetes mellitus Cervical vertebral fusion Migraine Vocal cord nodule Surgical History Surgical History History of thyroid nodule removed 1982 and 2010 History of neck surgery fusion 2000 Dr. Spivey History of left knee surgery 1998 Dr. Brewer History of elbow surgery Right, 1994 Dr. Paul Brewer Family History Family History Father Family history of migraine headaches Hypertension Family history of lung cancer Family history of coronary artery disease Mother Family history of rheumatic fever Social History Social History Smoking packs per day: 1 Smoking cigarettes per day: 20.0 Years smoked: 10 Smoking pack-years: 10.00 Smoking status: Former smoker Tobacco type: cigarettes Second hand tobacco smoke exposure: No Smoking end date: 12/04/00 Additional smoking assessment comments: DENIES ANY FORM OF TOBACCO USE Alcohol intake: former Substance use: never Substance use type: does not use Lack of Transportation: No Lack of Food: Never True Current Housing: I Have Housing Concerned About Future Housing: No Difficulty Paying Gas/Electric Bills: No Difficulty Paying for Meds: No Currently Unemployed: No Education: Trade/Vocational Certificate Difficulty w/ Childcare or Family Care: No Living arrangements: with family Additional living arrangements comments: Occupation/Education: retired Gender identity (if verbalized by the patient): Male Sexual Orientation (if Verbalized by the Patient): Straight or Heterosexual Spiritual care concerns: No Agree to blood products: Yes Anes - Eval Final PreProcedure Day of Procedure 06/26/24 15:32 Patient weight: normal Heart: regular rate and rhythm Lungs: clear to auscultation Airway: Mallampati scale class III Neurological: alert and oriented Last oral intake: >/= 8 hours ASA classification: III Emergent: no Anesthetic plan: proceed Anesthesia type and monitoring: general LMA and standard monitoring Results Review: All pre-operative results and documents have been reviewed as part of the pre- operative evaluation. Informed Consent: The patient's anesthetic plan and its attendant risks and benefits were discusse d with the patient/family/POA. Questions were solicited and answers provided to the satisfaction of the patient/family/POA.
[2024-06-27] VITALS (17 sets, daily range): BP systolic 125–152; BP diastolic 63–87; PULSE 85–98; RESP 13–20; TEMP 36.2–36.6; O2SAT 94–100; BMI 23.8
--- NOTE | ~2024-06-27 | XR_ITS ---
EXAMINATION: [id number] DATE: 06/27/2024 10:52 INDICATION: Total left knee arthroplasty. Postop. TECHNIQUE: 2 views of left knee were obtained. COMPARISON: Left knee radiographs 03/26/2024 FINDINGS: There is a total left knee arthroplasty without patellar resurfacing in near-anatomic align ment. No fracture. There is gas in the knee joint and soft tissues, consistent with recent surgery. A nterior skin cherelle are noted. IMPRESSION: 1. Total left knee arthroplasty in near-anatomic alignment. Reviewed, dictated and finalized at location B. LIFTER
[2024-06-27] MEDS: LACTATED RINGERS 1,000 ML 30 ML IV CONT ×2 (06:20→10:24)
[2024-06-27] MEDS: ACETAMINOPHEN 500 MG TABLET 1000 MG PO (06:34)
[2024-06-27 06:46] LABS: Glucose Point of Care 182 mg/dl (65-105)
[2024-06-27] MEDS: TRANEXAMIC ACID 1,000MG/ISO100 1,000 MG/100 ML BAG 200 MG IVPB (07:00)
--- NOTE | 2024-06-27 07:08 | WPDANESPNB ---
Anes - Peripheral Nerve Block Date/Time: 06/27/24 07:08 I have discussed with the patient/family/POA the placement of a peripheral nerve block for post-operative pain management, including associated risks, benefits, complications, and side effects. Alternative methods of post-operative analgesia were detailed. Questions were solicited and answers provided to the satisfaction of the patient/family/POA. Time-Out: A pre-procedural Time-Out was completed immediately before starting the procedure and confirmed: Patient Identification, Site, Procedure, Patient Position and the Availability of Requisite Equipment. Clinical Indications: Acute post-operative pain management requested by the operative surgeon. Nerve Block Insertion Note Anes-nerve block: adductor canal left Patient position: supine Skin prep: chlorhexidine Needle: 22 gauge, stimulating, insulated echogenic needle. Needle length: 80 mm Technique: ultrasound Injectate: bupivacaine 0.5% with epi 5 mcg/ml (30cc - no epi) Observations: tolerated well Complications: none Procedure start time:: 730 Procedure end time:: 733
--- NOTE | 2024-06-27 07:28 | WPDHPUPDATE1 ---
History and Physical Update Update Date/Time: 06/27/24 07:28 History and Physical has been reviewed, including an updated exam of the patient. There are NO changes in the patient's condition. Risks, benefits, and alternatives have been discussed and questions answered. Patient agrees to proceed with procedure.
[2024-06-27] MEDS: ceFAZolin 2 GM/D5W 50 ML 2 GM/50 ML BAG IVPB ×2 (07:41→16:06)
[2024-06-27] MEDS: SODIUM CHLORIDE 0.9% IV 37.7 ML, MORPHINE SULFATE INJ (*CRX) 2 MG, ROPivacaine HCL 1% 2... INFILTRATE (08:23)
[2024-06-27] MEDS: TRANEXAMIC ACID 1,000 MG/10 ML AMPUL 1000 MG IV PUSH (09:33)
--- NOTE | 2024-06-27 10:20 | W.PM.PROC2 ---
Procedure Note - Detailed Date of Procedure 06/27/24 Pre-op Diagnosis Lt Knee O.A. Post-op Diagnosis Same Procedure Performed L TKA Surgeon Bi Manning MD Anesthesia General Description of Procedure THE LEFT KNEE WAS PREPPED AND DRAPED IN THE STERILE FASHION. THERE WAS A 10 DEGREE FLEXION CONTRACTURE. A MIDLINE SKIN INCISION WAS MADE. A MEDIAL PARAPATELLAR ARTHROTOMY WAS MADE. THE PATELLA WAS EVERTED. THERE WAS TRICOMPARTMENT DJD. THERE WAS MINIMAL PATELLA DJD. AN INTRAMEDULLARY SIMÓN WAS PLACED IN THE FEMUR. A DISTAL FEMORAL CUT WAS MADE IN 5 DEGREES OF VALGUS REMOVING APPROXIMATELY 9 MM OF BONE FROM THE DISTAL FEMUR. THE FEMUR WAS SIZED TO 62.5. A 62.5 FEMORAL CUTTING BLOCK WAS PLACED IN 3 DEGREES OF EXTERNAL ROTATION AND IN ALIGNMENT WITH STEFANO'S LINE AND THE TRANSEPICONDYLAR AXIS. ANTERIOR POSTERIOR AND CHAMFER CUTS WERE MADE. THE CUTS WERE EXCELLENT. NEXT AN INTRAMEDULLARY CUTTING GUIDE WAS PLACED IN THE TIBIA. A TRANS TIBIAL CUT WAS MADE ALONG THE LONG AXIS OF THE TIBIA. APPROXIMATELY 10 MM OF BONE WAS REMOVED FROM THE HIGH SIDE OF THE TIBIA. THE TIBIA WAS THEN PLANED TO A SMOOTH SURFACE. POSTERIOR FEMORAL OSTEOPHYTES WERE REMOVED FROM THE FEMORAL CONDYLES. A 75 TIBIAL TRIAL WAS PLACED IN ALIGNMENT WITH THE 1/3 MEDIAL ASPECT OF THE TIBIAL TUBERCLE. THEN A 62.5 FEMORAL TRIAL COMPONENT WAS PLACED. BOTH HAD EXCELLENT FITS. EVENTUALLY A 10 CR POLYETHYLENE TRIAL COMPONENT WAS PLACED. THE KNEE WAS TAKEN THROUGH A RANGE OF MOTION. THE KNEE CAME OUT TO FULL EXTENSION. THERE WAS NO ABNORMAL TILT TO THE PATELLA. THERE WAS GOOD A/P AND VARUS/VALGUS STABILITY. THERE WAS NO EXCESSIVE ROLL BACK WITH FLEXION. THE TRIAL COMPONENTS WERE REMOVED. THEN A 62.5 FEMORAL COMPONENT AND 75 TIBIAL COMPONENT WITH A 10 CR POLYETHYLENE COMPONENT WERE CEMENTED INTO PLACE. ONCE THE CEMENT WAS HARD THE KNEE WAS TAKEN THROUGH A ROM AGAIN AND FOUND TO BE STABLE WITH NO PATELLA TILT NO EXCESSIVE ROLL BACK WITH FLEXION AND GOOD STABILITY WITH COMPLETE AND FULL EXTENSION. THE KNEE WAS IRRIGATED WITH STERILE BETADINE AND WATER FOR ABOUT 3 MINUTES. THE BLEEDERS WERE CAUTERIZED. THE ARTHROTOMY WAS REPAIRED WITH NUMBER 1 VICRYL. THE SUB CUTANEOUS LAYER WITH 2-0 VICRYL AND THE SKIN WITH NGUYỄN. THE WOUND WAS WASHED AND A STERILE DRESSING WAS APPLIED. PATIENT WAS EXTUBATED. Estimated Blood Loss -150.0 Pathology None sent Complications No immediate complications Condition Stable Disposition PACU
[2024-06-27 10:34] LABS: Glucose Point of Care 253 mg/dl (65-105)
[2024-06-27] MEDS: INSULIN HUMAN REGULAR (*BKC) 100 UNITS/ML IV PUSH ×2 (10:58→13:46)
[2024-06-27] MEDS: fentaNYL CITRATE INJ (*CRX) 100 MCG/2 ML VIAL 25 MCG IV PUSH ×5 (11:03→13:55)
[2024-06-27] MEDS: HYDROmorphone HCL INJ (*CRX) 1 MG/ML SYR 0.5 MG IV PUSH (11:23)
--- NOTE | 2024-06-27 13:20 | SUR.PHASEI ---
1300 PT RECEIVED TO RM 6 , DRINKS OFFERED, AT BEDSIDE.
[2024-06-27 13:28] LABS: Glucose Point of Care 257 mg/dl (65-105)
--- NOTE | 2024-06-27 14:20 | ADMGEN ---
This patient, Mirza Prado, was admitted to Medical Room 345-. Patient/family oriented to hospital policies and general routines including ID bracelet, bed and alarms, visiting hours, pain management, procedures, bathroom and other care routines, personal items, smoking policy, room service/diet, and visiting hours. Information on how to activate the Rapid Response Team has been discussed. Patient/Family are encouraged to report perceived risks to care and to ask questions if they do not understand what they are told or what they should do.
[2024-06-27] MEDS: SENNA/DOCUSATE SODIUM TABLET 2 TAB PO ×2 (14:38→17:42)
[2024-06-27] MEDS: TAMSULOSIN HCL 0.4 MG CAPSULE PO (14:38)
[2024-06-27] MEDS: ASPIRIN 325 MG ENTERIC TABLET PO ×2 (14:38→20:22)
[2024-06-27] MEDS: oxyCODONE/ACETAMINOPHEN (*CRX) 5-325 MG TABLET 1 TABLET PO ×2 (14:39→18:51)
[2024-06-27] MEDS: polyethylene glycoL 3350 17 GM POWD.PACK PO (14:39)
[2024-06-27] MEDS: DONEPEZIL HCL 5 MG TABLET PO (14:39)
[2024-06-27 16:18] LABS: Glucose Point of Care 209 mg/dl (65-105)
[2024-06-27] MEDS: metFORMIN HCL 500 MG TABLET PO (17:42)
[2024-06-27] MEDS: IBUPROFEN IV 800 MG/200 ML 800 MG/200 ML BAG 400 MG IVPB (20:22)
[2024-06-27] MEDS: FAMOTIDINE 20 MG TABLET 40 MG PO (20:22)
[2024-06-27] MEDS: SIMVASTATIN 10 MG TABLET PO (20:22)
[2024-06-28] MEDS: oxyCODONE/ACETAMINOPHEN (*CRX) 5-325 MG TABLET 1 TABLET PO ×3 (00:07→08:11)
[2024-06-28] MEDS: ceFAZolin 2 GM/D5W 50 ML 2 GM/50 ML BAG IVPB ×2 (00:07→08:12)
[2024-06-28 04:20] VITALS: BP 136/77; PULSE 88; RESP 18; TEMP 36.5; O2SAT 95
[2024-06-28 05:48] LABS: Basophils Absolute Auto 0.1 K/mm3 (0.0-0.1); Basophils Percent Auto 0.4 % (0.2-1.2); Eosinophils Absolute Auto 0.1 K/mm3 (0-0.3); Eosinophils Percent Auto 0.7 % (0-4.4); Hematocrit 30.5 % (42.0-52.0); Hemoglobin 9.4 g/dL (14.0-18.0); Immature Granulocyte Absolute 0.07 K/mm3 (0.00-0.031); Immature Granulocyte Percent A 0.5 % (0-0.5); Immature Platelet Fraction Pct 5.8 % (0.9-11.2); Lymphocytes Absolute Auto 1.78 K/mm3 (0.9-3.2); Lymphocytes Percent Auto 12.1 % (18.3-44.2); Mean Corpuscular HGB Conc 30.8 g/dl (32-36); Mean Corpuscular Hemoglobin 20.5 pg (26-34); Mean Corpuscular Volume 66.6 fl (80-100); Mean Platelet Volume 11.1 fl (7.4-10.4); Monocytes Absolute Auto 1.5 K/mm3 (0.1-0.6); Monocytes Percent Auto 10.3 % (2.6-8.5); Neutrophils Absolute Auto 11.2 K/mm3 (1.3-6.7); Nucleated Red Blood Cells Perc 0.1 % (0.0-0.2); Platelet Count Result 183 k/mm3 (150-375); Red Blood Count 4.58 M/mm3 (4.6-6.20); White Blood Count 14.7 K/mm3 (4.5-10.0)
[2024-06-28 05:59] LABS: Anion Gap 7 mmol/L (4-12); Blood Urea Nitrogen 14 mg/dL (9-20); Carbon Dioxide 30 mmol/L (22-30); Chloride 100 mmol/L (98-107); Estimated CRCL calculation 72 ml/min; Estimated Glomerular Filt Rate > 60; Glucose 171 mg/dL (65-110); Potassium 4.7 mmol/L (3.4-5.0); Sodium 137 mmol/L (137-145)
[2024-06-28 06:28] LABS: Platelet Estimate Adequate (Adequate)
[2024-06-28 06:30] LABS: Anisocytosis 1+; Basophilic Stippling 1+; Hypochromasia 1+; Ovalocytes 1+; Schistocytes None Seen; Target Cells 1+; Tear Drop Cells 1+
[2024-06-28] MEDS: metFORMIN HCL 500 MG TABLET PO (08:10)
[2024-06-28] MEDS: LOSARTAN POTASSIUM 12.5 MG TABLET BY MOUTH (08:10)
[2024-06-28] MEDS: CELECOXIB 200 MG CAPSULE BY MOUTH (08:10)
[2024-06-28] MEDS: SENNA/DOCUSATE SODIUM TABLET 2 TAB PO (08:10)
[2024-06-28] MEDS: GLIMEPIRIDE 1 MG TABLET PO (08:11)
[2024-06-28] MEDS: TAMSULOSIN HCL 0.4 MG CAPSULE PO (08:11)
[2024-06-28] MEDS: ASPIRIN 325 MG ENTERIC TABLET PO (08:11)
[2024-06-28] MEDS: DONEPEZIL HCL 5 MG TABLET PO (08:11)
[2024-06-28] MEDS: polyethylene glycoL 3350 17 GM POWD.PACK PO (08:12)
[2024-06-28 08:58] VITALS: BP 114/57; PULSE 95; RESP 17; TEMP 36.2; O2SAT 98
--- NOTE | 2024-06-28 09:17 | P.PNOP_ITS ---
Progress Note: A&P Assessment and Plan (1) S/P total knee arthroplasty: Qualifiers: Laterality: left Qualified Code(s): Z96.652 - Presence of left artificial knee joint Code(s): Z96.659 - Presence of unspecified artificial knee joint Status: Acute Assessment and Plan: POD #1 : Left TKA Continue PT/OT. WBAT. Walker. HIGH FALL RISK. Continue pain control. Ice Aspirin. Protect skin. DVT prophylaxis with Aspirin. SCDs. Incentive Spirometry Use reviewed. Monitor Dressing. Change prior to discharge. Bowel Regimen. Dispo: Home with Home Health pending progress with PT/OT Plan Reviewed history, exam, radiographs and current labs with attending MD and covering surgeon, Dr. Manning, who agrees with current plan as indicated above. No further recommendations from Dr. Manning at this time. Subjective Subjective Date/Time Seen: 06/28/24 09:17 Post Op day: 1 Principal diagnosis: Left Knee DJD Interval history: POD #1: Left TKA Patient doing well. Some nausea. Does not like Percocet. Switching to [place] as this is what he has used in the past without issue. Review of Systems Review of Systems: All systems reviewed & are unremarkable except as noted in HPI and below Constitutional: Constitutional: Denies fever(s) and Denies headache(s) ENT: Denies headache(s) Cardiovascular: Cardiovascular: Denies chest pain, Denies diaphoresis, Denies palpitations and Denies dyspnea Respiratory: Respiratory: Denies dyspnea Gastrointestinal: Gastrointestinal: Denies abdominal pain, Denies constipation, Denies nausea and Denies vomiting Genitourinary: Genitourinary: Denies dysuria and Reports nocturia Musculoskeletal: Musculoskeletal: Reports arthralgias (Left Knee ), Reports joint swelling (Left Knee ) and Reports limited range of motion (ROM limited due to recent surgical intervention LEFT Knee ) Neurologic: Denies headache(s) Endocrine: Endocrine: Denies palpitations Exam Const: General: comfortable and no acute distress Resp: Effort & Inspection: normal respiratory effort Cardio: Rate: regular rate Rhythm: regular rhythm GI: GI Palp: Yes Soft to palpation, No Tenderness to palpation present (GI) and No Guarding due to palpation present (GI) Skin: General skin exam: wounds noted (see extremity assessment ) Wounds: wounds noted (see extremity assessment ) Neuro: Cognition (Neuro): normal cognition Other: NV intact aside from block. Moves toes. Sensation intact to light touch. +ankle dorsiflexion/plantarflexion. Extrem: Left lower extremity: normal to inspection, normal capillary refill, knee Details: tenderness (diffuse ) Location: of the patella, swelling (moderate consistent to recent surgery ), abnormal ROM (limited due to recent surgery ) Details: pain with active ROM and pain with passive ROM and ecchymosis (as expected with recent surgery. NO hematoma. ), lower leg (Negative Mundo's Sign ), ankle (+ankle dorsiflexion/plantarflexion ) Details: normal to inspection, no edema and normal ROM; no tenderness and no swelling and foot Details: normal capillary refill, toes with normal ROM, vascular exam Details: dorsalis pedis pulse present and motor-sensory exam light-touch normal; no tenderness Other: Incision left TKA dressing c/d/i. No hematoma. No signs of infection. No wound dehiscence. Psych: Mental Status: mental status grossly normal Objective Data Vital Signs Vital Signs: Vital Signs - 24 hr 06/27/24 10:24 06/27/24 10:39 06/27/24 10:54 Temperature 36.2 C L Pulse Rate 86 86 89 Respiratory Rate 14 18 13 Blood Pressure 134/77 133/64 152/72 H Pulse Oximetry 100 100 100 Oxygen Delivery Simple Face Mask Simple Face Mask Simple Face Mask Oxygen Flow Rate 8 8 8 06/27/24 11:09 06/27/24 11:24 06/27/24 11:38 Temperature Pulse Rate 90 98 93 Respiratory Rate 17 20 16 Blood Pressure 148/87 H 138/83 137/74 Pulse Oximetry 95 94 94 Oxygen Delivery Room Air Room Air Nasal Cannula Oxygen Flow Rate 2 06/27/24 11:57 06/27/24 12:30 06/27/24 13:28 Temperature 36.6 C Pulse Rate 97 89 85 Respiratory Rate 16 16 18 Blood Pressure 136/68 143/77 H 140/74 Pulse Oximetry 97 97 98 Oxygen Delivery Nasal Cannula Nasal Cannula Nasal Cannula Oxygen Flow Rate 2 2 2 06/27/24 14:01 06/27/24 14:16 06/27/24 14:24 Temperature 36.3 C L 36.4 C L Pulse Rate 93 85 Respiratory Rate 18 18 Blood Pressure 144/78 H 137/76 Pulse Oximetry 98 97 98 Oxygen Delivery Nasal Cannula Oxygen Flow Rate 2 06/27/24 14:46 06/27/24 15:00 06/27/24 15:08 Temperature 36.5 C Pulse Rate 88 Respiratory Rate 18 Blood Pressure 127/67 Pulse Oximetry 95 Oxygen Delivery Room Air Room Air Oxygen Flow Rate 06/27/24 15:46 06/27/24 20:00 06/27/24 20:20 Temperature 36.4 C 36.5 C Pulse Rate 92 95 Respiratory Rate 18 18 Blood Pressure 125/63 131/82 Pulse Oximetry 97 99 Oxygen Delivery Room Air Oxygen Flow Rate 06/27/24 23:46 06/28/24 04:20 06/28/24 08:58 Temperature 36.6 C 36.5 C 36.2 C L Pulse Rate 97 88 95 Respiratory Rate 18 18 17 Blood Pressure 138/70 136/77 114/57 L Pulse Oximetry 99 95 98 Oxygen Delivery Oxygen Flow Rate Intake/Output Intake/Output: Intake & Output 06/25/24 06/26/24 06/27/24 06/28/24 23:59 23:59 23:59 23:59 Intake Total 1140 400 Output Total 200 Balance 940 400 Meds/Results Medications: Active Medications Generic Name Dose Route Start Last Admin Trade Name Freq PRN Reason Stop Dose Admin Aspirin 325 mg 06/27/24 14:01 06/28/24 08:11 Aspirin 325 Mg Enteric Tablet PO 325 mg Q12HR SUE Administration Celecoxib 200 mg 06/28/24 09:00 06/28/24 08:10 Celecoxib 200 Mg Capsule BY MOUTH 200 mg QAM SUE Administration Diazepam 5 mg 06/27/24 14:01 Diazepam (*Crx) 5 Mg Tablet PO Q8H PRN Spasms Diphenhydramine HCl 25 mg 06/27/24 14:01 Diphenhydramine Hcl Inj 50 Mg/Ml Vial IV PUSH Q6H PRN Itching Donepezil HCl 5 mg 06/27/24 14:01 06/28/24 08:11 Donepezil Hcl 5 Mg Tablet PO 5 mg DAILY SUE Administration Famotidine 40 mg 06/27/24 21:00 06/27/24 20:22 Famotidine 20 Mg Tablet PO 40 mg HS SUE Administration Glimepiride 1 mg 06/28/24 08:00 06/28/24 08:11 Glimepiride 1 Mg Tablet PO 1 mg DAILY@0800 SUE Administration Hydromorphone HCl 0.5 mg 06/27/24 11:17 06/27/24 11:23 Hydromorphone Hcl Inj (*Crx) 1 Mg/Ml Syr IV PUSH 0.5 mg PRN PRN Administration Pain Rated 7-10 Hydromorphone HCl 1 mg 06/27/24 14:01 Hydromorphone Hcl Inj (*Crx) 1 Mg/Ml Syr IV PUSH Q2H PRN Breakthrough Pain Rated 7-10 or NPO Hydromorphone HCl 0.5 mg 06/27/24 14:01 Hydromorphone Hcl Inj (*Crx) 1 Mg/Ml Syr IV PUSH Q2H PRN Breakthrough Pain Rated 4-6 or NPO Ibuprofen 800 mg in 200 mls @ 400 mls/hr 06/27/24 14:01 06/27/24 20:52 Caldolor 800 Mg/200 Ml IVPB Infused Q6H PRN Infusion Breakthrough Pain Rated 1-3 or NPO Losartan Potassium 12.5 mg 06/28/24 09:00 06/28/24 08:10 Losartan Potassium 12.5 Mg Tablet BY MOUTH 12.5 mg QAM SUE Administration Metformin HCl 500 mg 06/27/24 17:00 06/28/24 08:10 Metformin Hcl 500 Mg Tablet PO 500 mg TIDWM SUE Administration Naloxone HCl 0.1 mg 06/27/24 14:01 Naloxone Hcl 0.4 Mg/Ml Vial IV PUSH Q2M PRN Opiate Reversal Ondansetron HCl 4 mg 06/27/24 14:01 Ondansetron Inj 4 Mg/2 Ml Vial IV PUSH Q4H PRN Nausea And Vomiting Oxycodone/Acetaminophen 1 tablet 06/27/24 14:01 06/28/24 08:11 Oxycodone/Acetaminophen (*Crx) 5-325 Mg Tablet PO 1 tablet Q4H PRN Administration Pain Rated 4-6 Oxycodone/Acetaminophen 1 tab 06/27/24 14:01 Oxycodone/Acetaminophen (*Crx) 10-325 Mg Tablet PO Q6H PRN Pain Rated 7-10 Polyethylene Glycol 17 gm 06/27/24 14:01 06/28/24 08:12 Polyethylene Glycol 3350 17 Gm Powd.Pack PO 17 gm QAM SUE Administration Senna/Docusate Sodium 2 tab 06/27/24 14:01 06/28/24 08:10 Senna/Docusate Sodium Tablet PO 2 tab BID SUE Administration Simvastatin 10 mg 06/27/24 21:00 06/27/24 20:22 Simvastatin 10 Mg Tablet PO 10 mg HS SUE Administration Tamsulosin HCl 0.4 mg 06/27/24 14:01 06/28/24 08:11 Tamsulosin Hcl 0.4 Mg Capsule PO 0.4 mg DAILY SUE Administration Radiology Results: ITS Impressions Knee X-Ray 06/27/24 10:56 IMPRESSION: 1. Total left knee arthroplasty in near-anatomic alignment. Labs Labs: Laboratory Results - last 24 hr 06/27/24 06/27/24 06/27/24 10:31 13:23 16:13 WBC RBC Hgb Hct MCV MCH MCHC RDW Plt Count MPV Immature Gran % (Auto) Neut % (Auto) Lymph % (Auto) [place] % (Auto) Eos % (Auto) Baso % (Auto) Lymph # (Auto) [place] # (Auto) Eos # (Auto) Baso # (Auto) Abs Immat Gran (auto) Absolute Neuts (auto) Absolute Nucleated RBC Nucleated RBC % Platelet Estimate % Immature Plt Fraction Hypochromasia Basophilic Stippling Anisocytosis Target Cells Tear Drop Cells Ovalocytes Schistocytes Sodium Potassium Chloride Carbon Dioxide Anion Gap BUN Creatinine Estim Creat Clear Calc Estimated GFR Glucose POC Capillary Glucose 253 H 257 H 209 H Calcium 06/28/24 05:24 WBC 14.7 H RBC 4.58 L Hgb 9.4 L Hct 30.5 L MCV 66.6 L MCH 20.5 L MCHC 30.8 L RDW 16.0 H Plt Count 183 MPV 11.1 H Immature Gran % (Auto) 0.5 Neut % (Auto) 76.0 H Lymph % (Auto) 12.1 L Norman % (Auto) 10.3 H Eos % (Auto) 0.7 Baso % (Auto) 0.4 Lymph # (Auto) 1.78 Norman # (Auto) 1.5 H Eos # (Auto) 0.1 Baso # (Auto) 0.1 Abs Immat Gran (auto) 0.07 H Absolute Neuts (auto) 11.2 H Absolute Nucleated RBC 0.020 H Nucleated RBC % 0.1 Platelet Estimate Adequate % Immature Plt Fraction 5.8 Hypochromasia 1+ Basophilic Stippling 1+ Anisocytosis 1+ Target Cells 1+ Tear Drop Cells 1+ Ovalocytes 1+ Schistocytes None seen Sodium 137 Potassium 4.7 Chloride 100 Carbon Dioxide 30 Anion Gap 7 BUN 14 Creatinine 0.86 Estim Creat Clear Calc 72 Estimated GFR > 60 Glucose 171 H POC Capillary Glucose Calcium 9.0 Quality VTE Prophylaxis VTE prophylaxis: pharmacologic ordered
--- NOTE | 2024-06-28 14:15 | PCPTNOTE ---
On 06/28/24, the student, HAL Brasher, provided care and completed [facility] documentation on this patient. I have reviewed the student's documentation and agree with the findings.
--- OUTSIDE RECORDS SUMMARY | 2024-06-28 21:06 | XMS_ITS | Clinical Summary ---
Author Organization [facility] Address [address] [place] [address] Care Team Providers Care Turn Machine Operator Name Role Phone Unavailable Primary Care Provider Unavailabl e Medications HYDROcodone-christophe taminophen (NORCO) 5-325 mg tablet Take 1 tablet by mouth twice daily as needed 60 Tablet 06/12/2024 12:17 PM ADULT BASIC EDUCATION TEACHER 5 Active HYDROcodone-christophe taminophen (NORCO) 5-325 mg tablet Take 1 Tablet by mouth every 4 hours as needed FOR PAIN. Max Daily Amount: 6 Tablets 40 Tablet 06/28/2024 4:39 PM ADULT BASIC EDUCATION TEACHER 5 Active aspirin (ECOTRIN EC) 325 mg Tablet, Delayed Release (E.C.) Take 1 Tablet (325 mg) by mouth every 12 hours for 28 days. 56 Tablet 06/28/2024 4:39 PM ADULT BASIC EDUCATION TEACHER 5 07/26/19 25 Active HYDROcodone-christophe taminophen (NORCO) 5-325 mg tablet Take 1 Tablet by mouth 2 times daily as needed. Max Daily Amount: 2 Tablets 60 Tablet 05/09/2024 12:45 PM ADULT BASIC EDUCATION TEACHER 4 06/11/19 25 Discontinu ed(Reorder ) Encounters Date Type Department Care Team Description 06/27/2024 External Device Data ST[facility] ABSTRACTION Provider, Abstract 06/26/2024 External Device Data ST[facility] ABSTRACTION Provider, Abstract 06/19/2024 External Device Data ST[facility] ABSTRACTION Provider, Abstract 05/17/2024 10:50 AM ADULT BASIC EDUCATION TEACHER Ancillary Procedure [address] [address] Paul Santoyo MD Kidney stone from Last 3 Months Social History Tobacco Use Types Packs/Day Years Used Date Smoking Tobacco: Never Assessed Sex and Gender Information Value Date Recorded Sex Assigned at Not on file Legal Sex Male 2:33 PM CDT Gender Identity Not on file Sexual Orientation Not on file Plan of Treatment Health Maintenance Due Date Last Done Comments DTAP/TDAP/TD VACCINES (1 - Tdap) 1972 COLORECTAL SCREENING 1998 Colorectal Cancer Screening 1998 FIT-DNA Q 3 years 1998 FIT/FOBT Q 1 year 1998 Flex Sig/CT Colonography Q 5 years 1998 PNEUMOCOCCAL VACCINE 65+ YEARS (1 of 1 - PCV) 03/24/20 03 ZOSTER VACCINE (1 of 2) 2003 INFLUENZA VACCINE (#1) 2024 RSV VACCINE (60+ or ) (1 - 1-dose 75+ series) 2028 Procedures Procedure Name Priority Date/Time Associated Diagnosis Comments XR ABDOMEN 1 VW Routine 05/17/2024 11:11 AM ADULT BASIC EDUCATION TEACHER Kidney stone from Last 3 Months Results * XR ABDOMEN 1 VW (05/17/2024 11:11 AM ADULT BASIC EDUCATION TEACHER) Anatomical Region Laterality Modality Abdomen Computed Radiogr aphy 05/17/2024 11:1 1 AM ADULT BASIC EDUCATION TEACHER Impressions 05/17/2024 11:34 AM ADULT BASIC EDUCATION TEACHER IMPRESSION: No abnormal calcifications are noted. Narrative 05/17/2024 11:34 AM ADULT BASIC EDUCATION TEACHER EXAM: XR ABDOMEN 1 VW DATE: 05/17/2024 11:14 AM HISTORY: Kidney stone COMPARISON: None. FINDINGS: The bowel gas pattern is nonobstructive. No abnormal calcifications are noted. Procedure Note Tricia Mcconnell MD - 05/17/2024 EXAM: XR ABDOMEN 1 VW DATE: 05/17/2024 11:14 AM HISTORY: Kidney stone COMPARISON: None. FINDINGS: The bowel gas pattern is nonobstructive. No abnormal calcifications are noted. IMPRESSION: No abnormal calcifications are noted. us Paul Santoyo MD DIAGNOSTIC IMAGING ORDERAB LES Final Result from Last 3 Months Insurance RX AETNA Medicare Part D RX [employer] (INTERNAL) [facility] AETNA O [facility]
== END 2024-06-28 13:05 | disposition home health service (06) ==
LOC: ANHSURGERY 06:00 → ANH3MED 06-28 08:25
PROVIDERS: PCP Family Medicine; Visit Provider Orthopaedic Surgery
PROC: (CPT 27447; principal; 2024-06-27 07:30)
DX: M17.12 Unilateral primary osteoarthritis, left knee (principal); G89.18 Other acute postprocedural pain; E11.9 Type 2 diabetes mellitus without complications; Z79.84 Long term (current) use of oral hypoglycemic drugs; Z87.891 Personal history of nicotine dependence
CPT/HCPCS: 27447; 64447; 36415; 73560; 80048; 82948; 85025; 85055; 86850; 86900; 86901; 97110; 97116; 97161; 97165; 97530; 97535; A9270; C1713; C1776; J0171; J0690; J1100; J1171; J1741; J1815; J1885; J2270; J2405; J2704; J2795; J3010; J7120

== ENCOUNTER 2024-10-10 13:04 | Outpatient (CLI) | payer MEDICARE, SELFPAY ==
--- NOTE | ~2024-10-10 | XR_ITS ---
Cervical Spine: AP, lateral, open-mouth views Clinical History: Pain Findings: The normal lordotic curve is maintained. 4 mm retrolisthesis of C4 over C5 present, with se magaly degenerative disc narrowing at C4-C5. There is anterior and interbody fusion from C5 to C6. Liliana ining disc spaces are preserved. Mild to moderate facet arthropathy present. Pre-vertebral soft tissu es are unremarkable. Impression: 4 mm retrolisthesis C4-C5, with severe degenerative disc narrowing at this level. C5-C6 fusion, as above.. Reviewed, dictated and finalized at location M. Impression: 4 mm retrolisthesis C4-C5, with severe degenerative disc narrowing at this leve l. C5-C6 fusion, as above..
--- NOTE | ~2024-10-10 | XR_ITS ---
Lumbosacral Spine: AP and lateral views Clinical History: Pain Findings: The normal lordotic curve is maintained. The vertebral bodies and posterior elements are i ntact. There is severe degenerative disc narrowing L5-S1. There is moderate facet arthropathy from L4 through S1. The sacroiliac joints are normally outlined. Impression: Degenerative spondylosis of the lower lumbar spine, as above. Reviewed, dictated and finalized at location M. Impression: Degenerative spondylosis of the lower lumbar spine, as above.
== END 2024-10-10 13:05 | disposition home or self-care (01) ==
LOC: MICIMG 13:06
PROVIDERS: PCP Family Medicine; Visit Provider Pain Medicine Interventional Pain Medicine
DX: M47.26 Other spondylosis with radiculopathy, lumbar region (principal); Z98.1 Arthrodesis status
CPT/HCPCS: 72040; 72100

== ENCOUNTER 2024-10-18 11:17 | Outpatient (CLI) | payer MEDICARE, SELFPAY ==
--- NOTE | ~2024-10-18 | XR_ITS ---
Right Knee Technique: AP, lateral, and sunrise views were obtained. Clinical History: Pain Findings: No fracture or dislocation is seen. Osseous alignment is anatomic. Joint spaces are preserv ed, with minimal spurring. Soft tissues are unremarkable. No joint effusion is seen. Impression: Minimal degenerative spurring. Reviewed, dictated and finalized at location . Impression: Minimal degenerative spurring.
== END 2024-10-18 11:18 | disposition home or self-care (01) ==
LOC: MICIMG 11:18
PROVIDERS: PCP Family Medicine; Visit Provider Orthopaedic Surgery
DX: M25.561 Pain in right knee (principal)
CPT/HCPCS: 73564

== ENCOUNTER 2025-01-30 13:57 | Outpatient (CLI) | payer MEDICARE, SELFPAY ==
--- OUTSIDE RECORDS SUMMARY | 2025-01-30 14:06 | XMS_ITS | Clinical Summary ---
Author Organization [facility] Address [address] [place] [address] Care Team Providers Care Remnant Sorter Name Role Phone Unavailable Primary Care Provider Unavailabl e Medications HYDROcodone-ac etaminophen (NORCO) 5-325 mg tablet Take 1 tablet by mouth twice daily as needed 60 Tablet 06/12/2024 12:17 PM BAR AND FILLER ASSEMBLER 5 Active HYDROcodone-ac etaminophen (NORCO) 5-325 mg tablet Take 1 Tablet by mouth every 4 hours as needed FOR PAIN. Max Daily Amount: 6 Tablets 40 Tablet 06/28/2024 4:39 PM BAR AND FILLER ASSEMBLER 5 Active diazePAM (VALIUM) 5 mg tablet Take 1 Tablet (5 mg) by mouth every 8 hours as needed for muscle spasm 30 Tablet 07/05/2024 6:57 PM BAR AND FILLER ASSEMBLER 5 Active ondansetron (ZOFRAN ODT) 4 mg Tablet, Rapid Dissolve Dissolve 1 Tablet (4 mg) by mouth every 8 hours as needed for nausea and vomiting. 30 Tablet 1 07/10/2024 12:22 PM BAR AND FILLER ASSEMBLER 5 Active ondansetron (ZOFRAN ODT) 4 mg Tablet, Rapid Dissolve Dissolve 1 Tablet (4 mg) by mouth every 8 hours as needed for nausea and vomiting. 30 Tablet 1 07/17/2024 2:55 PM BAR AND FILLER ASSEMBLER 5 Active oxyCODONE-acet aminophen (PERCOCET) 5-325 mg tablet Take 1 Tablet by mouth every 12 hours as needed. Max Daily Amount: 2 Tablets 30 Tablet 08/03/2024 1:06 PM BAR AND FILLER ASSEMBLER 5 Active HYDROcodone-ac etaminophen (NORCO) 5-325 mg tablet Take 1 Tablet by mouth 2-3 times daily NEEDED. 60 Tablet 09/14/2024 1:07 PM CDT 5 Active amoxicillin (AMOXIL) 500 mg capsule Take 4 Capsules (2,000 mg) by mouth 30 minutes before dental procedure. 4 Capsule 2 09/25/2024 3:00 PM CDT 5 Active naloxone (NARCAN) 4 mg/spray [place], Non-Aerosol Administer 1 [place] (4 mg) in one nostril (alternate nostril with each dose) 1 time daily as needed. Push plunger to administer. Call 911. May repeat dose, every 2-3 minutes, if the person does not wake up or breathing is not improved. 2 Each 1 5 Active HYDROcodone-ac etaminophen (NORCO) 5-325 mg tablet Take 1 Tablet by mouth 2 times daily as needed. 42 Tablet 11/02/2024 3:51 PM CDT 5 Active HYDROcodone-ac etaminophen (NORCO) 5-325 mg tablet Take 1 tablet by mouth 2-3 times daily as needed 60 Tablet 01/11/2025 12:55 PM CDT 5 Active omeprazole (PriLOSEC) 40 mg Capsule, Delayed Release(E.C.) Take 1 Capsule (40 mg) by mouth daily in the morning on an empty stomach. Wait 30 minutes to eat or drink afterwards,. 30 Capsule 3 01/22/2025 11:00 AM CDT 5 Active HYDROcodone-ac etaminophen (NORCO) 5-325 mg tablet Take 1 Tablet by mouth 2 - 3 times daily as needed for pain. Max Daily Amount: 3 Tablets 60 Tablet 12/17/2024 1:01 PM CDT 5 01/08/20 25 Discontinu ed(Reorder ) Encounters Date Type Department Care Team Description 01/22/2025 External Device Data STL ABSTRACTION Provider, Abstract 11/20/2024 External Device Data STL ABSTRACTION Provider, Abstract 11/15/2024 9:40 AM CDT Ancillary Procedure [address] [address] Paul Santoyo MD Kidney stone from Last 3 Months Social History Tobacco Use Types Packs/Day Years Used Date Smoking Tobacco: Never Assessed Sex and Gender Information Value Date Recorded Sex Assigned at Not on file Legal Sex Male 2:33 PM CDT Gender Identity Not on file Sexual Orientation Not on file Plan of Treatment Health Maintenance Due Date Last Done Comments DIABETES ANNUAL FOOT EXAM 1971 DIABETES ANNUAL RETINAL EXAM 1971 DIABETES HBA1C Q 6 MONTHS 1971 DIABETES MICROALBUMIN ANNUAL SCREEN 1971 LDL CHOLESTEROL ANNUAL 1971 DTAP/TDAP/TD VACCINES (1 - Tdap) 1972 PNEUMOCOCCAL VACCINE 50+ YEARS (1 of 2 - PCV) 03/24/19 72 COLORECTAL SCREENING 1998 Colorectal Cancer Screening 1998 FIT-DNA Q 3 years 1998 FIT/FOBT Q 1 year 1998 Flex Sig/CT Colonography Q 5 years 1998 ZOSTER VACCINE (1 of 2) 2003 RSV VACCINE (60+ or ) (1 - Risk 60-74 years 1-dose series) 2013 INFLUENZA VACCINE (#1) 2025 Procedures Procedure Name Priority Date/Time Associated Diagnosis Comments XR ABDOMEN 1 VW Routine 11/15/2024 10:13 AM CDT Kidney stone from Last 3 Months Results * XR ABDOMEN 1 VW (11/15/2024 10:13 AM CDT) Anatomical Region Laterality Modality Abdomen Computed Radiogr aphy 11/15/2024 10:1 3 AM CDT Impressions 11/15/2024 10:22 AM CDT IMPRESSION: 1. No kidney stones noted. Narrative 11/15/2024 10:22 AM CDT EXAM: XR ABDOMEN 1 VW DATE: 11/15/2024 HISTORY: Kidney stone COMPARISON: May 17, 2024. FINDINGS: The bowel gas pattern is nonobstructive. No pathologic calcifications are seen. Procedure Note Steven Hernandez MD - 11/15/2024 EXAM: XR ABDOMEN 1 VW DATE: 11/15/2024 HISTORY: Kidney stone COMPARISON: May 17, 2024. FINDINGS: The bowel gas pattern is nonobstructive. No pathologic calcifications are seen. IMPRESSION: 1. No kidney stones noted. Paul Santoyo MD DIAGNOSTIC IMAGING ORDERAB LES Final Result from Last 3 Months Insurance RX AETNA Medicare Part D RX [employer] (INTERNAL) [facility] AETNA PPO [facility]
[2025-01-30 15:41] LABS: Hematocrit 37.5 % (42.0-52.0); Hemoglobin 11.6 g/dL (14.0-18.0); Immature Granulocyte Percent A 0.4 % (0-0.5); Immature Platelet Fraction Pct 5.7 % (0.9-11.2); Lymphocytes Absolute Auto 2.16 K/mm3 (0.9-3.2); Mean Corpuscular HGB Conc 30.9 g/dl (32-36); Mean Corpuscular Hemoglobin 20.5 pg (26-34); Mean Corpuscular Volume 66.1 fl (80-100); Nucleated Red Blood Cells Absolute Auto 0.020 K/mm3 (0.0-0.012); Nucleated Red Blood Cells Perc 0.3 % (0.0-0.2); Platelet Count Result 227 k/mm3 (150-375); Red Blood Count 5.67 M/mm3 (4.6-6.20); White Blood Count 7.9 K/mm3 (4.5-10.0)
[2025-01-30 16:11] LABS: Albumin Level 5.1 g/dL (3.5-5.1)
[2025-01-30 16:14] LABS: Anion Gap 12 mmol/L (4-12); Band Neutrophils Percent 0 % (0-6); Blood Urea Nitrogen 17 mg/dL (9-20); Calcium 9.6 mg/dL (8.4-10.2); Carbon Dioxide 26 mmol/L (22-30); Chloride 100 mmol/L (98-107); Estimated Glomerular Filt Rate > 60; Glucose 114 mg/dL (65-110); Hypochromasia 1+; Microcytosis 1+ (NORMAL); Potassium 4.0 mmol/L (3.4-5.0); Schistocytes Occasional; Sodium 138 mmol/L (137-145)
[2025-01-30 16:15] LABS: Anisocytosis 2+
[2025-01-30 16:50] LABS: MRSA (PCR) NOT DETECTED (NOT DETECTE)
[2025-01-30 17:15] LABS: Hemoglobin A1C 6.8 % (<5.7)
== END 2025-01-30 13:58 | disposition home or self-care (01) ==
LOC: ANHSURGERY 14:02
PROVIDERS: Anesthesiology; PCP Family Medicine; Visit Provider Orthopaedic Surgery
DX: M17.11 Unilateral primary osteoarthritis, right knee (principal); E11.9 Type 2 diabetes mellitus without complications; Z01.818 Encounter for other preprocedural examination
CPT/HCPCS: 36415; 80048; 80307; 82040; 83036; 85025; 85055; 87641

== ENCOUNTER 2025-02-28 01:55 | Day surgery (SDC) | payer MEDICARE, SELFPAY ==
--- OUTSIDE RECORDS SUMMARY | 2025-01-16 19:00 | XMS_ITS | Continuity of Care Document ---
Author Organization [facility] Address [address] [place] [id number] Phone Care Team Providers Care Supervisor Waterworks Name Role Phone Donn WESTON, FACC, Shine Unavailable Unavail able Procedures Procedure Date ELECTROCARDIOGRAM REPORT Advance Directives Directive Yes / No Effective Date File Name No Information Encounters Encounter Description Practice Location Reason(s) For Visit Diagnoses Date Provider Providers Copied on Encounter [facility], [address] [place] [address], [id number], tel:[phone] [facility] No Information Donn Riojas. [address] [place] [address], [id number], . tel:[phone] Referring Provider: Shine Pop, [address] [place] [address], [id number]. tel:[phone] Family History Family Member Type Diagnosis Age At Onset No Information Payers Payer name Insurance type Covered green party ID Authoriza tion(s) AETNA MEDICARE ESA PPO [id number] Social History Type Description Quantity Date Captured Comments Sex Male Smoking Status No Information Chief Complaint And Reason For Visit No Information Reason For Referral Reason For Referral No Information History Of Present Illness Encounter Date Complaint History Of Prese nt Illness No Information Functional Status Date Functional Assessmen t No Information Instructions Date Instruction Additional Infor mation No Information Assessments Type Assessment Date No Information Patient Care Teams Name Effective Dates (start - stop) Status Members No Information
[2025-01-30 14:23] VITALS: BP 122/78; PULSE 77; RESP 16; TEMP 36.4; O2SAT 100; BMI 23.4
--- NOTE | 2025-01-30 14:53 | PC.NURSE ---
Report to the Outpatient Waiting Room, entrance under the green pavilion located off [facility], at time ___6:00AM__ on date ___02/28/25__. Planned Procedure Time: ___7:30AM___.? Time changes happen often and if your time is changed the preop area will call you the afternoon before. - You and your visitor will be asked to self-screen and do not enter if you have any COVID symptoms. Please call surgeon if you need to reschedule. - A mask is optional within the hospital at this time. Patients may have clear liquids (water, carbonated beverages, clear teas, apple juice) until 3 hours prior to surgery (7:30AM) with a maximum of 20 ounces. - No food from midnight until time of surgery and no smoking, or chewing tobacco (or any form of nicotine). No chewing gum, candy or mints. Take only the following medications with a SIP of water on the morning of surgery: ___HYDROCODONE NEEDED FOR PAIN DO NOT STOP ANY OF YOUR OTHER PRESCRIPTION MEDICATIONS PRIOR TO SURGERY EXCEPT THE FOLLOWING Medications to discontinue per physician ____HOLD ALL VITAMINS/SUPPLEMENTS 5 DAYS PRE-OP PER DR FORD PER PATIENT___ Date to take last dose 02/22/25 Please no make-up, nail malawian, hairspray, perfume, deodorant, or body powder the day of surgery.? No jewelry (including any body piercings) or valuables the day of surgery, leave them at home.? Please take a shower or bath the night before, or the morning of, surgery with an antibacterial soap.? Wear comfortable, loose fitting clothing.? - Jewelry must be removed prior to entering the operating room.? Rings and piercings that are not removed may be cut off. - The hospital will not accept responsibility for valuables.? - Please leave all valuables, including medications, at home the day of surgery. If you are going home after surgery, a licensed driver trainee must drive you home.? - NO public transportation without another adult if you receive anesthesia. - We recommend that an adult stay with you for 24 hours following discharge. - We also recommend that you do not drive, make important decision, drink alcoholic beverages, or take any drugs that were not prescribed by your health care provider for at least 24 hours after your discharge time. Follow any additional instructions given to you from your surgeon. Telephone instructions given to ____PATIENT & WIFE and asked if any additional questions and then verbalized understanding. Patient advised to call surgeon office or pre surgery nurse liaison [phone] if any additional questions.
[2025-02-28] VITALS (16 sets, daily range): BP systolic 125–165; BP diastolic 65–90; PULSE 82–100; RESP 10–20; TEMP 36.4–36.9; O2SAT 93–99
--- NOTE | ~2025-02-28 | XR_ITS ---
EXAMINATION: [id number], 02/28/2025 10:20 CDT HISTORY: POST OP RIGHT TKA COMPARISON: No comparisons available. Findings: No acute fracture or malalignment. Knee prosthesis intact Soft tissues unremarkable. Impression: No acute fracture or malalignment. Reviewed, dictated and finalized at location A. Impression: No acute fracture or malalignment.
--- OUTSIDE RECORDS SUMMARY | 2025-02-28 01:58 | XMS_ITS | Clinical Summary ---
Author Organization [facility] Address [address] [place] [address] Care Team Providers Care Learning And Development Analyst Name Role Phone Unavailable Primary Care Provider Unavailabl e Medications HYDROcodone-ac etaminophen (NORCO) 5-325 mg tablet Take 1 tablet by mouth twice daily as needed 60 Tablet 06/12/2024 12:17 PM FINANCIAL SERVICES EDUCATION CONSULTANT 5 Active HYDROcodone-ac etaminophen (NORCO) 5-325 mg tablet Take 1 Tablet by mouth every 4 hours as needed FOR PAIN. Max Daily Amount: 6 Tablets 40 Tablet 06/28/2024 4:39 PM FINANCIAL SERVICES EDUCATION CONSULTANT 5 Active diazePAM (VALIUM) 5 mg tablet Take 1 Tablet (5 mg) by mouth every 8 hours as needed for muscle spasm 30 Tablet 07/05/2024 6:57 PM FINANCIAL SERVICES EDUCATION CONSULTANT 5 Active ondansetron (ZOFRAN ODT) 4 mg Tablet, Rapid Dissolve Dissolve 1 Tablet (4 mg) by mouth every 8 hours as needed for nausea and vomiting. 30 Tablet 1 07/10/2024 12:22 PM FINANCIAL SERVICES EDUCATION CONSULTANT 5 Active ondansetron (ZOFRAN ODT) 4 mg Tablet, Rapid Dissolve Dissolve 1 Tablet (4 mg) by mouth every 8 hours as needed for nausea and vomiting. 30 Tablet 1 07/17/2024 2:55 PM FINANCIAL SERVICES EDUCATION CONSULTANT 5 Active oxyCODONE-acet aminophen (PERCOCET) 5-325 mg tablet Take 1 Tablet by mouth every 12 hours as needed. Max Daily Amount: 2 Tablets 30 Tablet 08/03/2024 1:06 PM FINANCIAL SERVICES EDUCATION CONSULTANT 5 Active HYDROcodone-ac etaminophen (NORCO) 5-325 mg tablet Take 1 Tablet by mouth 2-3 times daily NEEDED. 60 Tablet 09/14/2024 1:07 PM CDT 5 Active amoxicillin (AMOXIL) 500 mg capsule Take 4 Capsules (2,000 mg) by mouth 30 minutes before dental procedure. 4 Capsule 2 09/25/2024 3:00 PM CDT 5 Active naloxone (NARCAN) 4 mg/spray [place], Non-Aerosol Administer 1 [place] (4 mg) in one nostril (alternate nostril [...] Tablet 11/02/2024 3:51 PM CDT 5 Active omeprazole (PriLOSEC) 40 mg Capsule, Delayed Release(E.C.) Take 1 Capsule (40 mg) by mouth daily in the morning on an empty stomach. Wait 30 minutes to eat or drink afterwards,. 30 Capsule 3 02/25/2025 11:27 AM CDT 5 Active HYDROcodone-ac etaminophen (NORCO) 5-325 mg tablet Take 1 tablet by mouth two to three times daily as needed. 60 Tablet 02/24/2025 12:41 PM CDT 5 Active HYDROcodone-ac etaminophen (NORCO) 5-325 mg tablet Take 1 tablet by mouth 2-3 times daily as needed 60 Tablet 01/11/2025 12:55 PM CDT 5 02/01/20 25 Discontinu ed(Reorder ) HYDROcodone-ac etaminophen (NORCO) 5-325 mg tablet TAKE 1 TABLET BY MOUTH TWICE TO THREE TIMES DAILY NEEDED 60 Tablet 02/01/2025 12:06 PM CDT 5 02/23/20 25 Discontinu ed(Reorder ) Encounters Date Type Department Care Team Description 02/05/2025 External Device Data STL ABSTRACTION Provider, Abstract 01/22/2025 External Device Data STL ABSTRACTION Provider, Abstract from Last 3 Months Social History Tobacco [...] 1-dose series) 2013 INFLUENZA VACCINE (#1) 2025 Insurance RX AETNA Medicare Part D RX [employer] (INTERNAL) [facility] AETNA PPO [facility]
[2025-02-28] MEDS: ACETAMINOPHEN 500 MG TABLET 1000 MG PO (06:23)
[2025-02-28] MEDS: LACTATED RINGERS 1,000 ML 30 ML IV CONT ×2 (06:30→10:00)
--- NOTE | 2025-02-28 06:58 | WPDANESEPPF ---
Anes - Initial Pre Proc Eval Procedure: Operation Date: 02/28/25 07:30 Proposed Procedures p Right Total Knee Arthroplasty - Christopher Faith MD Date/Time: 02/28/25 06:58 Surgeon: Christopher Faith MD Pre Op Diagnosis: primary OA right knee Patient Data Age: 69 Gender: M Height: 1.78 m Weight: 73.9 kg Last Vital Signs Temp 36.6 C 02/28/25 05:55 Pulse 98 02/28/25 05:55 Resp 20 02/28/25 05:55 BP 125/72 02/28/25 05:55 Pulse Ox 98 02/28/25 05:55 O2 Del Method Room Air 02/28/25 05:55 Allergies Allergy/AdvReac Type Severity Reaction Status Date / Time RAMON Inhibitors Allergy Severe Angioedema Verified 02/28/25 05:59 lisinopril Allergy Severe Swelling Verified 02/28/25 05:59 of Lip/Tongue/Throat bupropion (From Zyban) Allergy Mild Hives Verified 02/28/25 05:59 Nickel Allergy Unknown Itching Uncoded 01/30/25 15:15 Home Medications ?Medication ?Instructions ?Recorded ?Confirmed ?Type lancets #100 ea 10/06/20 01/30/25 Rx tadalafil 20 mg tablet (Cialis) 20 mg PO .COMPLEX #10 tabs 01/09/21 01/30/25 Rx blood sugar diagnostic (OneTouch #100 ea 02/07/24 01/30/25 Rx Verio test strips) losartan 25 mg tablet See Rx Instructions .Route 04/02/24 02/28/25 Rx .COMPLEX #45 tabs lancets 30 gauge (Ultra Thin #100 ea 05/16/24 01/30/25 Rx Lancets) glimepiride 1 mg tablet 1 mg PO QAM #90 tabs 06/04/24 02/28/25 Rx korwggdk-xx-beehp 300 mcg-K 60 1 tablet PO DAILY 06/13/24 02/28/25 History mcg-lycop 600 mcg-lutein 300 mcg tablet (Centrum Silver Men) omega 3-oyn-dbx-fish oil 1,000 mg 1 cap PO DAILY 06/13/24 02/28/25 History (120 mg-180 mg) capsule (Fish Oil) celecoxib 200 mg capsule See Rx Instructions .Route 08/26/24 02/28/25 Rx .COMPLEX #30 caps metformin 500 mg tablet 500 mg PO TID #270 tabs 09/04/24 02/28/25 Rx tamsulosin 0.4 mg capsule (Flomax) 0.4 mg PO DAILY #90 caps 10/03/24 02/28/25 Rx fluticasone propionate 50 1 spray intranasal DAILY PRN 10/10/24 01/30/25 History mcg/actuation nasal allergy symptoms spray,suspension (Allergy Relief (fluticasone)) simvastatin 10 mg tablet 10 mg PO HS #90 tabs 11/12/24 02/28/25 Rx famotidine 40 mg tablet 40 mg PO HS #90 tabs 12/20/24 02/28/25 Rx donepezil 5 mg tablet 5 mg PO DAILY #90 tabs 01/14/25 02/28/25 Rx omeprazole 40 mg capsule,delayed 40 mg PO DAILY laryngopharyngeal 01/21/25 02/28/25 Rx release reflux #30 caps hydrocodone 5 mg-acetaminophen 325 1 tablet PO Q8H PRN pain 01/30/25 02/28/25 History mg tablet Laboratory Tests 02/28/25 02/28/25 06:25 06:38 POC Capillary Glucose 240 H mg/dl (65-105) Blood Type Pending Antibody Screen Pending Patient hx anesthesia problems: none Family hx anesthesia problems: none Results Review: All pre-operative results and documents have been reviewed as part of the pre-operative evaluation. [facility] Past Medical History Medical History Anemia Urinary frequency Hearing loss Left knee DJD Right knee DJD Left shoulder pain Mixed hyperlipidemia Dementia Anxiety Chronic neck pain Chronic low back pain Hypertension Diabetes mellitus Cervical vertebral fusion Migraine Vocal cord nodule Surgical History Surgical History S/P total knee arthroplasty LT TKA 06/27/24- Dr. Manning History of thyroid nodule removed 1982 and 2010 History of neck surgery fusion 2000 Dr. Spivey History of left knee surgery 1998 Dr. Brewer History of elbow surgery Right, 1994 Dr. Paul Brewer Family History Family History Father Family history of migraine headaches Hypertension Family history of lung cancer Family history of coronary artery disease Mother Family history of rheumatic fever Social History Social History Social History: Caffeine-daily Smoking packs per day: 1 Smoking cigarettes per day: 20.0 Years smoked: 10 Smoking pack-years: 10.00 Smoking status: Former smoker Second hand tobacco smoke exposure: No Smoking end date: 06/06/99 Additional smoking assessment comments: . Alcohol intake: former Substance use: never Substance use type: does not use Do You Feel Safe in your Home?: Yes Lack of Transportation: No Lack of Food: Never True Current Housing: I Have Housing Concerned About Future Housing: No Difficulty Paying Gas/Electric Bills: No Difficulty Paying for Meds: No Currently Unemployed: No Education: Trade/Vocational Certificate Difficulty w/ Childcare or Family Care: No Living arrangements: with family Additional living arrangements comments: Occupation/Education: retired Gender identity (if verbalized by the patient): Male Sexual Orientation (if Verbalized by the Patient): Straight or Heterosexual Spiritual care concerns: No Agree to blood products: Yes Anes - Eval Final PreProcedure Day of Procedure 02/28/25 06:58 Patient weight: normal Heart: regular rate and rhythm Lungs: clear to auscultation Airway: Mallampati scale class III Neurological: alert and oriented Last oral intake: >/= 8 hours ASA classification: III Emergent: no Anesthetic plan: proceed Anesthesia type and monitoring: general LMA and standard monitoring Results Review: All pre-operative results and documents have been reviewed as part of the pre-operative evaluation. Informed Consent: The patient's anesthetic plan and its attendant risks and benefits were discussed with the patient/family/POA. Questions were solicited and answers provided to the satisfaction of the patient/family/POA.
--- NOTE | 2025-02-28 06:58 | SUR.PREOP ---
0647-Dr. Del Castillo aware of POC glucose of 240-no orders rcvd at this time.
[2025-02-28] MEDS: TRANEXAMIC ACID 1,000MG/ISO100 1,000 MG/100 ML BAG 200 MG IVPB (07:02)
--- NOTE | 2025-02-28 07:12 | WPDHPUPDATE1 ---
History and Physical Update Update Date/Time: 02/28/25 07:12 History and Physical has been reviewed, including an updated exam of the patient. There are NO changes in the patient's condition. Risks, benefits, and alternatives have been discussed and questions answered. Patient agrees to proceed with procedure.
[2025-02-28] MEDS: ceFAZolin 2 GM in SODIUM CHLORIDE 0.9% IV 50 ML 100 ML IVPB ×3 (07:30→22:12)
[2025-02-28] MEDS: SODIUM CHLORIDE 0.9% IV 37.7 ML, MORPHINE SULFATE INJ (*CRX) 2 MG, ROPivacaine HCL 1% 2... INFILTRATE (08:02)
[2025-02-28] MEDS: TRANEXAMIC ACID 1,000 MG/10 ML AMPUL 1000 MG IV PUSH (09:41)
[2025-02-28] MEDS: fentaNYL CITRATE INJ (*CRX) 100 MCG/2 ML VIAL 25 MCG IV PUSH ×3 (10:28→10:41)
[2025-02-28] MEDS: PANTOPRAZOLE 40 MG TABLET PO ×2 (13:07→21:04)
[2025-02-28] MEDS: ACETAMINOPHEN 325 MG TABLET 650 MG PO ×3 (13:07→23:18)
[2025-02-28] MEDS: SENNA/DOCUSATE SODIUM TABLET 2 TAB PO ×2 (13:08→18:00)
[2025-02-28] MEDS: DONEPEZIL HCL 5 MG TABLET PO (13:08)
[2025-02-28] MEDS: LOSARTAN POTASSIUM 25 MG TABLET 12.5 MG BY MOUTH (13:08)
[2025-02-28] MEDS: ASPIRIN 81 MG ENTERIC TABLET PO ×2 (13:09→21:04)
[2025-02-28] MEDS: GLIMEPIRIDE 1 MG TABLET PO (13:09)
[2025-02-28] MEDS: TAMSULOSIN HCL 0.4 MG CAPSULE PO (13:09)
[2025-02-28] MEDS: oxyCODONE/ACETAMINOPHEN (*CRX) 5-325 MG TABLET 1 TABLET PO (13:18)
--- NOTE | 2025-02-28 14:26 | P.OP_ITS ---
Procedure Note - Detailed Date of Procedure 02/28/25 Pre-op Diagnosis Right knee degenerative arthritis. Post-op Diagnosis Same Procedure Performed Calipered, kinematically aligned total knee replacement right knee. Surgeon Christopher Faith MD Shipping And Receiving Operator Vikki Valle PA-C Anesthesia General Findings According to the calipered kinematic alignment principles, the knee was balanced by the following verification checks incorporating 6 caliper measurements, using an insert goniometer to select the insert thickness, and adjusting the tibial resection following the kinematic alignment algorithm (see figure 160.10 published in [employer] chapter on kinematic alignment total knee arthroplasty.) The steps verified the femoral and tibial components were kinematically aligned coincident to the patient's pre arthritic joint lines, which closely restored the [place] tibial compartment forces and ligament laxities without ligament release. The [employer] MedstroK SperiKA knee, designed specifically for kinematic alignment, fit optimally. 0.5mm block adjustments made where necessary after senior manager quality assurance bone resection checks. The record of verification checks were documented and scanned into the chart. Distal Femoral Resection: Distal Medial 6 mm(cartilage worn), Distal Lateral 8.5 mm Target thickness of 8mm Unworn, 6mm Worn (No Cartilage). Posterior Femoral Resection: Posterior Medial 7.5 mm, Posterior Lateral 7 mm. Target thickness of 7mm Unworn, 5mm Worn (No Cartilage). Description of Procedure General anesthesia was administered. A well-padded tourniquet was placed high on the thigh. The limb was prepped and draped in the usual sterile fashion. The limb was exsanguinated and the tourniquet inflated to 300 mmHgduring exposure and cementation. A longitudinal incision was created over the midline of the knee. Sharp dissection was taken through subcutaneous tissues. Electrocautery was used for hemostasis. A subvastus approach to the knee joint was performed. The ACL, anterior horns of the menisci, and fat pad were excised, and a subperiosteal dissection was carried along the posterior medial border of the tibia. Starting midway between the top of the notch in the anterior femoral cortex, I drilled a 9 mm diameter hole parallel to the anterior cortex to minimize flexion of the femoral component and promote patella tracking. I verified the existence of a 5-10 mm bone bridge between the posterior aspect of the hole and the anterior limit of the intercondylar notch. An intraosseous positioning radha was inserted 10 cm into the femur perpendicular to the distal joint line and parallel to the anterior cortex. I used a distal femoral referencing guide that compensated 2 mm when the cartilage was worn on the distal medial femoral condyle, and 2 mm when the cartilage was worn on the distal lateral femoral condyle. The basis for setting the distal and posterior femoral resection guide is knowing that the varus and valgus grade II to IV Kellegren-Blayne osteoarthritic knees have negligible bone wear at 0? and 90? and that the mean full-thickness cartilage wear approximates 2 mm. I measured the thickness of distal femoral resections with a caliper to +/- 0.5 mm. The thickness of each resection was adjusted to match the thickness of the respective condyle of the femoral component within 0.5 mm of target after compensating for cartilage wear and kerf. When the distal resection was 1-2 mm too thin, a recut guide was used to adjust the cut. When the distal resection was too thick, a 1 or 2 mm thick washer was fixed to the back of the 4-in-1 chamfer block to gerson a corrective gap between the femoral component and distal femur. I set posterior femoral referencing guide at 0? orientation to position the pin holes for the 4 in 1 chamfer block. The nam wing measured the width of the distal femoral resection and selected the size of the 4 in 1 chamfer block and femoral component. The AP sizer confirmed the size. I measured the thickness of the posterior femoral resections with a caliper before making the anterior and chamfer cuts. I adjusted the thicknesses of each resection to match the thickness of the respective condyle of the femoral component within +/-0.[address] compensating for cartilage wear and kerf. When a posterior resection femoral resection was 1-2 mm too thick or thin a corrective correction was made by shifting or rotating the 4 in 1 chamfer block as needed. The chamfer block was secured in the correct position with compression screws. The anterior and chamfer femoral resections were made. These caliper measurements and corrections verified that the femoral component was set coincident with the patient's pre-arthritic distal and posterior femoral joint lines. I removed all the medial and lateral femoral and tibial osteophytes to restore the pre arthritic length of the medial and lateral collateral ligaments. I katrin AP lines along the major axis of the lateral tibial plateau in between the tibial spines which identified the flexion extension plane of the knee. A conventional extramedullary tibial resection guide was applied to the ankle. An nam wing was placed medially in the saw slot. The varus valgus angle of the tibial resection guide was adjusted until the guide paralleled the proximal tibial articular surface after compensating for cartilage and bone wear. The slope of flexion extension angle of the tibial resection guide was adjusted until the nam wing paralleled the slope of the medial tibia after compensating for wear. The AP axis of the tibial resection guide was adjusted parallel to the two lines. The proximal tibia was resected, partially releasing the insertion of the posterior cruciate ligament. The thickness of the medial and lateral lateral tibial condyle was measured at the base of the tibial spines. I visually verified the slope of the medial border of the resection was parallel to the patient's pre arthritic slope after compensating for cartilage and bone wear. I removed the remnants of the posterior horns of the menisci and posterior osteophytes and cauterized the inferior lateral genicular vessels. The Aquamantys bipolar device was also used to for additional hemostasis. When the knee had a preoperative flexion contracture of 20? or more I teased the capsule off the posterior femur with a curved 3 quarter-inch osteotome. I administered the posterior femoral periosteal injection by delivering 10 cc using a 20 gauge spinal needle at the most medial and 10 cc at the most lateral femoral spur surface which reduced the risk of injury to the posterior neurovascular st ructures. I followed 6 options in a decision tree to fine tune the varus valgus and posterior slope orientation of the tibial component to restore the patient's pre arthritic tibial joint line and limb alignment. First, I adjusted the varus- valgus orientation of the proximal tibia resection working in 1 degree to 2 degree increments until there was negligible medial and lateral lift off of the distal femoral and proximal tibial resection from the spacer block during a varus valgus laxity assessment in extension. I selected the largest anatomic shape trial tibial base plate that fit within the cortical boundary of the proximal tibial resection. The base plate was best fit parallel to the cortical boundary which set the Internal-external orientation of the anterior to posterior and medial to lateral positions. The best fit method set the AP axis of the tibial base plate and insert parallel to the flexion extension plane of the pre arthritic knee. I pinned the trial tibial base plate, prepared the cruciate slot, and fixed the base plate to the tibia with the cruciate stem. I inserted the trial femoral component. The knee was placed in full extension. Varus valgus laxity is of the knee with trial components were assessed. When asymmetric laxity was observed a 1-2 degree varus or valgus recut guide was used to fine tune the tibial resection until the laxity was 1 degree or less in full extension like the [place] knee. The following steps determined the optimal insert thickness within +/-1 mm. First I inserted an insert goniometer that matched the thickness of the spacer block. I reduced the patella and then with the knee in maximum extension, I verified the knee hyperextended a few degrees and had negligible varus valgus laxity, like the pre arthritic knee. Next, I measured the external tibial orientation which was the angle the insert goniometer intersected the sagittal line on the medial condyle of the femoral trial component. Then with the knee in 15-30 degrees flexion I verified a 3-4 mm gap in the lateral compartment and no gap in the medial compartment during a 2nd varus valgus laxity test. Next, I placed the knee in 90? of flexion and the foot resting on the operating table and measured the internal tibial orientation. I repeated the steps until I identified the insert thickness that provided the highest external tibia orientation in extension and the highest internal tibial orientation at 90? flexion without anterior lift-off of the insert from the tibial base plate. The insert with this thickness was implanted. I applied a posterior drawer test with the tibia distracted by gravity and verified no posterior subluxation of the tibia relative to the femur. The thickness of the [place] patella was measured with a caliper. The patella was resected using the oscillating saw. The best fitting anatomic patella button was selected. The fixation holes were drilled. When the patella and patella buttons combined thickness was thicker than the [place] patella, the patella was recut. The patella remained centered on the trochlea and tracked well throughout the entire arc of flexion and extension. I used pulse lavage to clean the bony surfaces of debris and dried bone. I cemented the tibial, femoral, and patellar components using 1 bag of methylmethacrylate with Gentamycin, then rechecked the stability at full extension, 15-30 degrees, and 90? flexion and verified buddhism of the entire arc of motion of the knee. The circulating nurse confirmed the sponge and needle counts were correct. I used pulse lavage to rinse the joint and wound. The extensor mechanism was closed with interrupted #1 Vicryl suture and #1 running Stratafix suture. The subcutaneous layer was closed with interrupted #1 Vicryl suture followed by 2-0 Stratafix and 3-0 Stratafix. Steri-Strips placed on the skin. Silver impregnated occlusive dressing applied to the wound. A light gauze wrap and Jignesh bandage were placed. The patient was transferred to the recovery room in stable condition. There were no complications. Implants Medacta K spheriKA Femoral component SpheriKA size 4, tibial component size 4, vitamin-E flex insert, thickness 11mm, Anatomic patella implant size 3. Estimated Blood Loss 200 Drains No Pathology None sent Complications No immediate complications Condition Stable Disposition PACU [facility] Billing Surgery - Charge Forward: Surgery Billing
[2025-02-28] MEDS: oxyCODONE/ACETAMINOPHEN (*CRX) 10-325 MG TABLET 1 TAB PO (20:59)
[2025-02-28] MEDS: FAMOTIDINE 20 MG TABLET 40 MG PO (21:04)
[2025-02-28] MEDS: SIMVASTATIN 10 MG TABLET PO (21:04)
[2025-02-28] MEDS: ONDANSETRON INJ 4 MG/2 ML VIAL IV PUSH (22:11)
[2025-02-28] MEDS: HYDROmorphone HCL INJ (*CRX) 1 MG/ML SYR IV PUSH (22:12)
[2025-03-01 01:25] VITALS: BP 135/80; PULSE 84; RESP 16; TEMP 35.9; O2SAT 98
[2025-03-01] MEDS: HYDROmorphone HCL INJ (*CRX) 1 MG/ML SYR IV PUSH (04:47)
[2025-03-01] MEDS: ACETAMINOPHEN 325 MG TABLET 650 MG PO (05:14)
[2025-03-01 05:25] VITALS: BP 136/71; PULSE 80; RESP 20; TEMP 36.4; O2SAT 95
[2025-03-01 05:59] LABS: Hematocrit 31.9 % (42.0-52.0); Hemoglobin 9.7 g/dL (14.0-18.0); Immature Granulocyte Percent A 0.7 % (0-0.5); Lymphocytes Absolute Auto 1.59 K/mm3 (0.9-3.2); Mean Corpuscular HGB Conc 30.4 g/dl (32-36); Mean Corpuscular Hemoglobin 20.5 pg (26-34); Mean Corpuscular Volume 67.3 fl (80-100); Nucleated Red Blood Cells Absolute Auto 0.000 K/mm3 (0.0-0.012); Nucleated Red Blood Cells Perc 0.0 % (0.0-0.2); Platelet Count Result 193 k/mm3 (150-375); Red Blood Count 4.74 M/mm3 (4.6-6.20); White Blood Count 11.9 K/mm3 (4.5-10.0)
[2025-03-01] MEDS: ceFAZolin 2 GM in SODIUM CHLORIDE 0.9% IV 50 ML 100 ML IVPB (06:18)
[2025-03-01 06:22] LABS: Anion Gap 8 mmol/L (4-12); Blood Urea Nitrogen 14 mg/dL (9-20); Calcium 8.9 mg/dL (8.4-10.2); Carbon Dioxide 28 mmol/L (22-30); Chloride 100 mmol/L (98-107); Estimated CRCL calculation 79 ml/min; Estimated Glomerular Filt Rate > 60; Glucose 179 mg/dL (65-110); Potassium 3.9 mmol/L (3.4-5.0); Sodium 136 mmol/L (137-145)
[2025-03-01 06:38] LABS: Hypochromasia 1+; Target Cells Occasional
[2025-03-01 06:40] LABS: Anisocytosis 1+; Ovalocytes Occasional; Schistocytes Rare
[2025-03-01] MEDS: oxyCODONE HCL (*CRX) 5 MG TAB IR PO (07:00)
[2025-03-01 08:00] VITALS: PULSE 80; RESP 20; O2SAT 95
[2025-03-01] MEDS: CELECOXIB 200 MG CAPSULE PO (08:50)
[2025-03-01] MEDS: SENNA/DOCUSATE SODIUM TABLET 2 TAB PO (08:50)
[2025-03-01] MEDS: DONEPEZIL HCL 5 MG TABLET PO (08:51)
[2025-03-01] MEDS: GLIMEPIRIDE 1 MG TABLET PO (08:51)
[2025-03-01] MEDS: LOSARTAN POTASSIUM 25 MG TABLET 12.5 MG BY MOUTH (08:51)
[2025-03-01] MEDS: PANTOPRAZOLE 40 MG TABLET PO (08:51)
[2025-03-01] MEDS: ASPIRIN 81 MG ENTERIC TABLET PO (08:51)
[2025-03-01] MEDS: TAMSULOSIN HCL 0.4 MG CAPSULE PO (08:51)
--- NOTE | 2025-03-01 10:15 | P.PNAN_ITS ---
Anes - Prog Note Post-Op Date/Time: 03/01/25 10:15 Cardiovascular status: normal Respiratory status: normal Airway patency: baseline Mental status: baseline Post-Op hydration status: normal Vital Signs: Last Vital Signs Temp 36.4 C L 03/01/25 05:25 Pulse 80 03/01/25 05:25 Resp 20 03/01/25 05:25 BP 136/71 03/01/25 05:25 Pulse Ox 95 03/01/25 05:25 O2 Del Method Room Air 02/28/25 22:00 O2 Flow Rate 2 02/28/25 11:30 Pain Score (VAS): 0 I/O: Intake & Output 02/28/25 03/01/25 03/01/25 23:59 07:59 15:59 Intake Total 1440 1000 240 Balance 1440 1000 240 Laboratory Tests 03/01/25 05:47 03/01/25 05:47 02/28/25 03/01/25 10:05 05:47 WBC 11.9 H RBC 4.74 Hgb 9.7 L Hct 31.9 L MCV 67.3 L MCH 20.5 L MCHC 30.4 L RDW 16.2 H Plt Count 193 MPV 10.4 Immature Gran % (Auto) 0.7 H Neut % (Auto) 74.4 H Lymph % (Auto) 13.4 L [place] % (Auto) 10.7 H Eos % (Auto) 0.4 Baso % (Auto) 0.4 Lymph # (Auto) 1.59 [place] # (Auto) 1.3 H Eos # (Auto) 0.1 Baso # (Auto) 0.1 Abs Immat Gran (auto) 0.08 H Absolute Neuts (auto) 8.9 H Absolute Nucleated RBC 0.000 Band Neutrophils % Not Reportable Nucleated RBC % 0.0 Platelet Estimate Adequate Hypochromasia 1+ Anisocytosis 1+ Target Cells Occasional Ovalocytes Occasional Schistocytes Rare Sodium 136 L Potassium 3.9 Chloride 100 Carbon Dioxide 28 Anion Gap 8 BUN 14 Creatinine 0.77 Estim Creat Clear Calc 79 Estimated GFR > 60 Glucose 179 H POC Capillary Glucose 234 H Calcium 8.9 Post-procedural complaints: none Patient Feedback: Patient satisfied with anesthetic care.
== END 2025-03-01 10:05 | disposition home or self-care (01) ==
LOC: ANHSURGERY 07:10 → ANH3MEDSUR 11:43
PROVIDERS: Physician Assistant Surgical; PCP Family Medicine; Visit Provider Orthopaedic Surgery
PROC: (CPT 27447; principal; 2025-02-28 07:30)
DX: M17.11 Unilateral primary osteoarthritis, right knee (principal); M25.761 Osteophyte, right knee; I10 Essential (primary) hypertension; E11.9 Type 2 diabetes mellitus without complications; D64.9 Anemia, unspecified; R35.0 Frequency of micturition; E78.2 Mixed hyperlipidemia; F03.90 Unspecified dementia, unspecified severity, without behavioral disturbance, psychotic disturbance, mood disturbance, and anxiety; F41.9 Anxiety disorder, unspecified; G89.29 Other chronic pain; M54.2 Cervicalgia; M54.50 Low back pain, unspecified; Z79.84 Long term (current) use of oral hypoglycemic drugs; Z79.1 Long term (current) use of non-steroidal anti-inflammatories (NSAID); Z79.891 Long term (current) use of opiate analgesic; Z98.890 Other specified postprocedural states; Z96.652 Presence of left artificial knee joint; Z98.1 Arthrodesis status; Z87.891 Personal history of nicotine dependence; Z80.1 Family history of malignant neoplasm of trachea, bronchus and lung; Z82.49 Family history of ischemic heart disease and other diseases of the circulatory system
CPT/HCPCS: 27447; 36415; 73560; 80048; 82948; 85025; 86850; 86900; 86901; 97110; 97161; 97165; 97530; 97535; J0690; A9270; J0166; J1100; J1171; J1885; J2003; J2250; J2270; J2405; J2704; J2795; J3010; J7120; J7512